=== PATIENT | female | born 1970 | race Hispanic/Latino ===

== ENCOUNTER → 2018-10-09 | Day surgery (SDC) | payer BC ==
[~2018-10-09] MED LIST: ASPIR 8181 MG PO; ATORVASTATIN CA20 MG PO; FENTANYL CITRATE/PF 100MCG/2 ML INJ ONE; GLIMEPIRIDE2 MG PO; HYDROCHLOROTHIA25 MG PO; LISINOPRIL10 MG PO; METOPROLOL TART25 MG PO; MIDAZOLAM HCL 2 MG/2 ML VIAL ONE; PROPOFOL IV EMULSION 10 MG/ML 20 ML VIAL ONE; SERTRALINE HCL50 MG PO; ZETIA10 MG PO
--- OUTSIDE RECORDS SUMMARY | 2018-10-09 06:46 | XMS REPORT ---
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 clinical pathologiccondition that includes a clinical event (vascularthrombosis, mortality, thrombocytopenia, etc.) andpersistent positivity of antiphospholipid antibodies (IgG orIgM ESTHER>40 GPL/MPL, IgG or IgM anti-B2GPI antibodies, or thepresence of a Lupus Anticoagulant). The InternationalConsensus guidelines suggest that these isotypes must bepresent on two or more occasions and at least 12 weeks apartto confirm antibody persistence. Although the IgA isotypehas been implicated in thrombotic events, these isotypeshave not yet been included into the APS criteria. YXTW-7-MZOJX I IGM (test code=GPIIGM) SMU 0.0-20.0 OIIU-6-ROHCK I IGG (test code=GPIIGG) SGU 0.0-20.0 ELWY-2-MPKTZ I IGA (test code=GPIIGA) 1.0 [place]ODROW 0.0-20.0 The Antiphospholipid Syndrome (APS) is a clinical pathologiccondition that includes a clinical event (vascularthrombosis, mortality, thrombocytopenia, etc.) andpersistent positivity of antiphospholipid antibodies (IgG orIgM ESTHER>40 GPL/MPL, IgG or IgM anti-B2GPI antibodies, or thepresence of a Lupus Anticoagulant). The InternationalConsensus guidelines suggest that these isotypes must bepresent on two or more occasions and at least 12 weeks apartto confirm antibody persistence. Although the IgA isotypehas been implicated in thrombotic events, these isotypeshave not yet been included into the APS criteria. HOMOCYSTEINE (test code=HOMOCY) 5.1 umol/L 3.2-10.7 DIAGNOSIS: CVA, RIGHT FACE NUMBNESSARTERIAL THROMBOPHILIA [id number] 12:37:00* Test Item Value Reference Range Comments PROTHROMBIN 3 UNTRANSLATED (test code=OU7RPQX) NO MUTATION DETECTED () PROTHROMBIN (FACTOR II ([id number]) MUTATION INTERPRETATION:This individual is negative (normal) for the [id number] in the Prothrombin/Factor II gene. Increased riskof thrombophilia can be caused by a variety of genetic andnon-genetic factors not screened for this assay. Laboratory testing supervised and results monitored byJuanito Yun M.D. MUTATION ANALYSIS:The [id number] mutation in the Prothrombin/FactorII gene is thesecond most common inherited risk factor for thrombosisoccuring in approximately 2% of Caucasions. Presence of themutation is associated with an elevation of prothrombinlevels to about 30% above normal in heterozygotes and to 70%above normal in homozygotes. The Prothrombin/Factor II isperformed on an automated system and integrates samplepurification, nucleic acid amplification, and detection ofthe target sequence in whole blood using real-time polymerase chain reaction (PCR) assays. Although rare. falsepositive or false negative results may occur. All resultsshould be interpreted in the context of clinical findings,relevant history, and other laboratory data. [facility] is certifiedunder the Clinical Laboratory Improvement Amendment (CLIA)as qualified to perform high complexity testing. PROTHROMBIN TIME PATIENT (test code=PTP) 13.1 SECONDS 9.3-12.9 INTERNATIONAL NORMAL RATIO (test code=INR) 1.2 0.8-1.2 TARGET INR BY INDICATION Indication INR1. Prophylaxis of venous thrombosis 2.0 - 3.0 (orthopedic surgery), Prophylaxis of venous thrombosis (other than high-risk surgery), Treatment of Deep Vein Thrombosis/Pulmonary Embolism, Prevention of systemic embolism - Tissue heart valves, Acute Myocardial Infarction (to prevent systemic embolism), Valvular heart disease, Atrial Fibrillation, Bileaflet mechanical valve in aortic position.2. Mechanical prosthetic valves (high risk), 2.5 - 3.5 Presence of Lupus Anticoagulant or Antiphospholipid Antibodies, Prevention of systemic embolism - Acute Myocardial Infarction (to prevent recurrent infarct). THROMBOPLASTIN TIME PARTIAL (test code=PTT) 41.4 Seconds 25.0-39.5 Therapeutic Range: 50.4 - 88.3 Seconds Effective 08/05/2018 PTT 1:1 MIX SECURITIES LENDING TRADER (test code=PTTMIX2) TEST NOT PERFORMED SECONDS () PTT 1:3 MIX (test code=PTTMIX3) TEST NOT PERFORMED SECONDS () PT 1:2 MIX (test code=PTMIX2) TEST NOT PERFORMED SECONDS () Mixing study not indicated due to normal PT and PTT. RVVT PATIENT (test code=RVVTPAT) 1.1 RATIO 0.0-1.2 ACTIVATED PROT C RESISTANCE (test code=APC) 2.82 RATIO 2.31-5.00 Ratios > or=to 2.31 are considered negative for the FactorV Leiden. SILICA CLOTTING TIME (test code=SILCLOT) 1.05 <1.14 PT 12.9 sec (9.6-13.0)PTT 34 sec (25-37) A Lupus Anticoagulant is NOT DETECTED. This interpretationis based on the test results.Previously reported result: 1.05 Edited by: RAHAT on 09/01/18:070357 1230: SILICA CLOTTING previously reported as: 1.05 PROTEIN S FREE (test code=PROTSFR) 101 % 55-124 Protein S deficiency may be acquired due to recentthrombosis, oral anticoagulant therapy, , oralcontraceptives or hormone replacement therapy, liverdysfunction, recent surgery, DIC, and vitamin K deficiency.Hereditary deficiency of Protein S show decreased levels butare rare. Elevated Protein S levels are not clinicallysignificant. Only decreased levels are associated with anincreased thrombotic risk. ESTHER IGG (test code=ACAG) 1.2 GPL <=15 ESTHER IGA (test code=ACAA) 0.5 APL <=12 ESTHER IGM (test code=ACAM) 3.8 MPL <=12.5 The Antiphospholipid Syndrome (APS) is a clinical pathologiccondition that includes a clinical event (vascularthrombosis, mortality, thrombocytopenia, etc.) andpersistent positivity of antiphospholipid antibodies (IgG orIgM ESTHER>40 GPL/MPL, IgG or IgM anti-B2GPI antibodies, or thepresence of a Lupus Anticoagulant). The InternationalConsensus guidelines suggest that these isotypes must bepresent on two or more occasions and at least 12 weeks apartto confirm antibody persistence. Although the IgA isotypehas been implicated in thrombotic events, these isotypeshave not yet been included into the APS criteria. WUJG-9-KRDMR I IGM (test code=GPIIGM) SMU <20 ZMTP-6-CNVSN I IGG (test code=GPIIGG) UNITS <20 BAEA-0-EHIFY I IGA (test code=GPIIGA) 0.0-20.0 HOMOCYSTEINE (test code=HOMOCY) 5.1 umol/L 3.2-10.7 DIAGNOSIS: CVA, RIGHT FACE NUMBNESSC REACTIVE [id number] 15:11:00* Test Item Value Reference Range Comments C REACTIVE PROTEIN (test code=CRP) < 2.9 MG/L 0.0-2.9 ANTINUCLEAR ANTIBODIES [id number] 15:11:00* Test Item Value Reference Range Comments VINAYAK SCREEN (test code=ANASCR) Negative () Negative <1:80 Borderline 1:80 Positive >1:80Performed At: [facility] [address] [id number] Ki Momin MD Ph:[phone] ARTERIAL THROMBOPHILIA [id number] 14:14:00* Test Item Value Reference Range Comments PROTHROMBIN 3 UNTRANSLATED (test code=PZ0DMAS) NO MUTATION DETECTED () PROTHROMBIN (FACTOR II ([id number]) MUTATION INTERPRETATION:This individual is negative (normal) for the [id number] in the Prothrombin/Factor II gene. Increased riskof thrombophilia can be caused by a variety of genetic andnon-genetic factors not screened for this assay. Laboratory testing supervised and results monitored byJuanito Yun M.D. MUTATION ANALYSIS:The [id number] mutation in the Prothrombin/FactorII gene is thesecond most common inherited risk factor for thrombosisoccuring in approximately 2% of Caucasions. Presence of themutation is associated with an elevation of prothrombinlevels to about 30% above normal in heterozygotes and to 70%above normal in homozygotes. The Prothrombin/Factor II isperformed on an automated system and integrates samplepurification, nucleic acid amplification, and detection ofthe target sequence in whole blood using real-time polymerase chain reaction (PCR) assays. Although rare. falsepositive or false negative results may occur. All resultsshould be interpreted in the context of clinical findings,relevant history, and other laboratory data. [facility] is certifiedunder the Clinical Laboratory Improvement Amendment (CLIA)as qualified to perform high complexity testing. PROTHROMBIN TIME PATIENT (test code=PTP) 13.1 SECONDS 9.3-12.9 INTERNATIONAL NORMAL RATIO (test code=INR) 1.2 0.8-1.2 TARGET INR BY INDICATION Indication INR1. Prophylaxis of venous thrombosis 2.0 - 3.0 (orthopedic surgery), Prophylaxis of venous thrombosis (other than high-risk surgery), Treatment of Deep Vein Thrombosis/Pulmonary Embolism, Prevention of systemic embolism - Tissue heart valves, Acute Myocardial Infarction (to prevent systemic embolism), Valvular heart disease, Atrial Fibrillation, Bileaflet mechanical valve in aortic position.2. Mechanical prosthetic valves (high risk), 2.5 - 3.5 Presence of Lupus Anticoagulant or Antiphospholipid Antibodies, Prevention of systemic embolism - Acute Myocardial Infarction (to prevent recurrent infarct). THROMBOPLASTIN TIME PARTIAL (test code=PTT) 41.4 Seconds 25.0-39.5 Therapeutic Range: 50.4 - 88.3 Seconds Effective 08/05/2018 PTT 1:1 MIX SECURITIES LENDING TRADER (test code=PTTMIX2) TEST NOT PERFORMED SECONDS () PTT 1:3 MIX (test code=PTTMIX3) TEST NOT PERFORMED SECONDS () PT 1:2 MIX (test code=PTMIX2) TEST NOT PERFORMED SECONDS () Mixing study not indicated due to normal PT and PTT. RVVT PATIENT (test code=RVVTPAT) 1.1 RATIO 0.0-1.2 ACTIVATED PROT C RESISTANCE (test code=APC) 2.82 RATIO 2.31-5.00 Ratios > or=to 2.31 are considered negative for the FactorV Leiden. SILICA CLOTTING TIME (test code=SILCLOT) 1.05 <1.14 PT 12.9 sec (9.6-13.0)PTT 34 sec (25-37) A Lupus Anticoagulant is NOT DETECTED. This interpretationis based on the test results.Previously reported result: 1.05 Edited by: RAHAT on 09/01/18:343640 1230: SILICA CLOTTING previously reported as: 1.05 PROTEIN S FREE (test code=PROTSFR) 101 % 55-124 Protein S deficiency may be acquired due to recentthrombosis, oral anticoagulant therapy, , oralcontraceptives or hormone replacement therapy, liverdysfunction, recent surgery, DIC, and vitamin K deficiency.Hereditary deficiency of Protein S show decreased levels butare rare. Elevated Protein S levels are not clinicallysignificant. Only decreased levels are associated with anincreased thrombotic risk. ESTHER IGG (test code=ACAG) ESTHER IGA (test code=ACAA) ESTHER IGM (test code=ACAM) IEVO-3-DGOFX I IGM (test code=GPIIGM) SMU <20 ENYK-3-DILHO I IGG (test code=GPIIGG) UNITS <20 REMN-5-WITIT I IGA (test code=GPIIGA) 0.0-20.0 HOMOCYSTEINE (test code=HOMOCY) 5.1 umol/L 3.2-10.7 ARTERIAL THROMBOPHILIA [id number] 16:08:00* Test Item Value Reference Range Comments PROTHROMBIN 3 UNTRANSLATED (test code=OV0THUX) NO MUTATION DETECTED () PROTHROMBIN (FACTOR II ([id number]) MUTATION INTERPRETATION:This individual is negative (normal) for the [id number] in the Prothrombin/Factor II gene. Increased riskof thrombophilia can be caused by a variety of genetic andnon-genetic factors not screened for this assay. Laboratory testing supervised and results monitored byJuanito Yun M.D. MUTATION ANALYSIS:The [id number] mutation in the Prothrombin/FactorII gene is thesecond most common inherited risk factor for thrombosisoccuring in approximately 2% of Caucasions. Presence of themutation is associated with an elevation of prothrombinlevels to about 30% above normal in heterozygotes and to 70%above normal in homozygotes. The Prothrombin/Factor II isperformed on an automated system and integrates samplepurification, nucleic acid amplification, and detection ofthe target sequence in whole blood using real-time polymerase chain reaction (PCR) assays. Although rare. falsepositive or false negative results may occur. All resultsshould be interpreted in the context of clinical findings,relevant history, and other laboratory data. [facility] is certifiedunder the Clinical Laboratory Improvement Amendment (CLIA)as qualified to perform high complexity testing. PROTHROMBIN TIME PATIENT (test code=PTP) 13.1 SECONDS 9.3-12.9 INTERNATIONAL NORMAL RATIO (test code=INR) 1.2 0.8-1.2 TARGET INR BY INDICATION Indication INR1. Prophylaxis of venous thrombosis 2.0 - 3.0 (orthopedic surgery), Prophylaxis of venous thrombosis (other than high-risk surgery), Treatment of Deep Vein Thrombosis/Pulmonary Embolism, Prevention of systemic embolism - Tissue heart valves, Acute Myocardial Infarction (to prevent systemic embolism), Valvular heart disease, Atrial Fibrillation, Bileaflet mechanical valve in aortic position.2. Mechanical prosthetic valves (high risk), 2.5 - 3.5 Presence of Lupus Anticoagulant or Antiphospholipid Antibodies, Prevention of systemic embolism - Acute Myocardial Infarction (to prevent recurrent infarct). THROMBOPLASTIN TIME PARTIAL (test code=PTT) 41.4 Seconds 25.0-39.5 Therapeutic Range: 50.4 - 88.3 Seconds Effective 08/05/2018 PTT 1:1 MIX SECURITIES LENDING TRADER (test code=PTTMIX2) SECONDS () PTT 1:3 MIX (test code=PTTMIX3) SECONDS () PT 1:2 MIX (test code=PTMIX2) SECONDS () Mixing study not indicated due to normal PT and PTT. RVVT PATIENT (test code=RVVTPAT) 1.1 RATIO 0.0-1.2 ACTIVATED PROT C RESISTANCE (test code=APC) 2.82 RATIO 2.31-5.00 Ratios > or=to 2.31 are considered negative for the FactorV Leiden. SILICA CLOTTING TIME (test code=SILCLOT) 1.05 <1.14 PT 12.9 sec (9.6-13.0)PTT 34 sec (25-37) A Lupus Anticoagulant is NOT DETECTED. This interpretationis based on the test results.Previously reported result: 1.05 Edited by: RAHAT on 09/01/18:836373 1230: SILICA CLOTTING previously reported as: 1.05 PROTEIN S FREE (test code=PROTSFR) 101 % 55-124 Protein S deficiency may be acquired due to recentthrombosis, oral anticoagulant therapy, , oralcontraceptives or hormone replacement therapy, liverdysfunction, recent surgery, DIC, and vitamin K deficiency.Hereditary deficiency of Protein S show decreased levels butare rare. Elevated Protein S levels are not clinicallysignificant. Only decreased levels are associated with anincreased thrombotic risk. ESTHER IGG (test code=ACAG) ESTHER IGA (test code=ACAA) ESTHER IGM (test code=ACAM) PXQG-9-ZMHKI I IGM (test code=GPIIGM) SMU <20 JRDG-8-HMJQU I IGG (test code=GPIIGG) UNITS <20 GUFM-8-MXQVH I IGA (test code=GPIIGA) 0.0-20.0 HOMOCYSTEINE (test code=HOMOCY) 5.1 umol/L 3.2-10.7 ARTERIAL THROMBOPHILIA [id number] 12:41:00* Test Item Value Reference Range Comments PROTHROMBIN 3 UNTRANSLATED (test code=HV2ZGJI) PROTHROMBIN TIME PATIENT (test code=PTP) 13.1 SECONDS 9.3-12.9 INTERNATIONAL NORMAL RATIO (test code=INR) 1.2 0.8-1.2 TARGET INR BY INDICATION Indication INR1. Prophylaxis of venous thrombosis 2.0 - 3.0 (orthopedic surgery), Prophylaxis of venous thrombosis (other than high-risk surgery), Treatment of Deep Vein Thrombosis/Pulmonary Embolism, Prevention of systemic embolism - Tissue heart valves, Acute Myocardial Infarction (to prevent systemic embolism), Valvular heart disease, Atrial Fibrillation, Bileaflet mechanical valve in aortic position.2. Mechanical prosthetic valves (high risk), 2.5 - 3.5 Presence of Lupus Anticoagulant or Antiphospholipid Antibodies, Prevention of systemic embolism - Acute Myocardial Infarction (to prevent recurrent infarct). THROMBOPLASTIN TIME PARTIAL (test code=PTT) 41.4 Seconds 25.0-39.5 Therapeutic Range: 50.4 - 88.3 Seconds Effective 08/05/2018 PTT 1:1 MIX SECURITIES LENDING TRADER (test code=PTTMIX2) SECS PT 1:2 MIX (test code=PTMIX2) SECS RVVT PATIENT (test code=RVVTPAT) 1.1 RATIO 0.0-1.2 ACTIVATED PROT C RESISTANCE (test code=APC) 2.82 RATIO 2.31-5.00 Ratios > or=to 2.31 are considered negative for the FactorV Leiden. SILICA CLOTTING TIME (test code=SILCLOT) 1.05 <1.14 PT 12.9 sec (9.6-13.0)PTT 34 sec (25-37) A Lupus Anticoagulant is NOT DETECTED. This interpretationis based on the test results.Previously reported result: 1.05 Edited by: RAHAT on 09/01/18:053766 1230: SILICA CLOTTING previously reported as: 1.05 PROTEIN S FREE (test code=PROTSFR) 101 % 55-124 Protein S deficiency may be acquired due to recentthrombosis, oral anticoagulant therapy, , oralcontraceptives or hormone replacement therapy, liverdysfunction, recent surgery, DIC, and vitamin K deficiency.Hereditary deficiency of Protein S show decreased levels butare rare. Elevated Protein S levels are not clinicallysignificant. Only decreased levels are associated with anincreased thrombotic risk. ESTHER IGG (test code=ACAG) ESTHER IGA (test code=ACAA) ESTHER IGM (test code=ACAM) YCVL-6-SEBVM I IGM (test code=GPIIGM) SMU <20 NZJD-0-UDXLK I IGG (test code=GPIIGG) UNITS <20 MAES-9-WLWWX I IGA (test code=GPIIGA) 0.0-20.0 HOMOCYSTEINE (test code=HOMOCY) 5.1 umol/L 3.2-10.7 ARTERIAL THROMBOPHILIA [id number] 12:40:00* Test Item Value Reference Range Comments PROTHROMBIN 3 UNTRANSLATED (test code=YD5PLXI) PROTHROMBIN TIME PATIENT (test code=PTP) 13.1 SECONDS 9.3-12.9 INTERNATIONAL NORMAL RATIO (test code=INR) 1.2 0.8-1.2 TARGET INR BY INDICATION Indication INR1. Prophylaxis of venous thrombosis 2.0 - 3.0 (orthopedic surgery), Prophylaxis of venous thrombosis (other than high-risk surgery), Treatment of Deep Vein Thrombosis/Pulmonary Embolism, Prevention of systemic embolism - Tissue heart valves, Acute Myocardial Infarction (to prevent systemic embolism), Valvular heart disease, Atrial Fibrillation, Bileaflet mechanical valve in aortic position.2. Mechanical prosthetic valves (high risk), 2.5 - 3.5 Presence of Lupus Anticoagulant or Antiphospholipid Antibodies, Prevention of systemic embolism - Acute Myocardial Infarction (to prevent recurrent infarct). THROMBOPLASTIN TIME PARTIAL (test code=PTT) 41.4 Seconds 25.0-39.5 Therapeutic Range: 50.4 - 88.3 Seconds Effective 08/05/2018 PTT 1:1 MIX SECURITIES LENDING TRADER (test code=PTTMIX2) SECS PT 1:2 MIX (test code=PTMIX2) SECS RVVT PATIENT (test code=RVVTPAT) 1.1 RATIO 0.0-1.2 ACTIVATED PROT C RESISTANCE (test code=APC) SILICA CLOTTING TIME (test code=SILCLOT) 1.05 <1.14 PT 12.9 sec (9.6-13.0)PTT 34 sec (25-37) A Lupus Anticoagulant is NOT DETECTED. This interpretationis based on the test results.Previously reported result: 1.05 Edited by: RAHAT on 09/01/18:968122 1230: SILICA CLOTTING previously reported as: 1.05 PROTEIN S FREE (test code=PROTSFR) 101 % 55-124 Protein S deficiency may be acquired due to recentthrombosis, oral anticoagulant therapy, , oralcontraceptives or hormone replacement therapy, liverdysfunction, recent surgery, DIC, and vitamin K deficiency.Hereditary deficiency of Protein S show decreased levels butare rare. Elevated Protein S levels are not clinicallysignificant. Only decreased levels are associated with anincreased thrombotic risk. ESTHER IGG (test code=ACAG) ESTHER IGA (test code=ACAA) ESTHER IGM (test code=ACAM) JEUE-9-WHGYK I IGM (test code=GPIIGM) SMU <20 IFIK-3-TWKYC I IGG (test code=GPIIGG) UNITS <20 RHYU-9-LPHZM I IGA (test code=GPIIGA) 0.0-20.0 HOMOCYSTEINE (test code=HOMOCY) 5.1 umol/L 3.2-10.7 ARTERIAL THROMBOPHILIA [id number] 12:30:00* Test Item Value Reference Range Comments PROTHROMBIN 3 UNTRANSLATED (test code=RX3IGXN) PROTHROMBIN TIME PATIENT (test code=PTP) 13.1 SECONDS 9.3-12.9 INTERNATIONAL NORMAL RATIO (test code=INR) 1.2 0.8-1.2 TARGET INR BY INDICATION Indication INR1. Prophylaxis of venous thrombosis 2.0 - 3.0 (orthopedic surgery), Prophylaxis of venous thrombosis (other than high-risk surgery), Treatment of Deep Vein Thrombosis/Pulmonary Embolism, Prevention of systemic embolism - Tissue heart valves, Acute Myocardial Infarction (to prevent systemic embolism), Valvular heart disease, Atrial Fibrillation, Bileaflet mechanical valve in aortic position.2. Mechanical prosthetic valves (high risk), 2.5 - 3.5 Presence of Lupus Anticoagulant or Antiphospholipid Antibodies, Prevention of systemic embolism - Acute Myocardial Infarction (to prevent recurrent infarct). THROMBOPLASTIN TIME PARTIAL (test code=PTT) 41.4 Seconds 25.0-39.5 Therapeutic Range: 50.4 - 88.3 Seconds Effective 08/05/2018 PTT 1:1 MIX SECURITIES LENDING TRADER (test code=PTTMIX2) SECS PT 1:2 MIX (test code=PTMIX2) SECS RVVT PATIENT (test code=RVVTPAT) 1.1 RATIO 0.0-1.2 ACTIVATED PROT C RESISTANCE (test code=APC) SILICA CLOTTING TIME (test code=SILCLOT) 1.05 <1.14 PROTEIN S FREE (test code=PROTSFR) % ESTHER IGG (test code=ACAG) ESTHER IGA (test code=ACAA) ESTHER IGM (test code=ACAM) JNCH-2-VNQTP I IGM (test code=GPIIGM) SMU <20 YGQA-9-KMELF I IGG (test code=GPIIGG) UNITS <20 BRTO-8-TPVSJ I IGA (test code=GPIIGA) 0.0-20.0 HOMOCYSTEINE (test code=HOMOCY) 5.1 umol/L 3.2-10.7 ARTERIAL THROMBOPHILIA [id number] 12:30:00* Test Item Value Reference Range Comments PROTHROMBIN 3 UNTRANSLATED (test code=CC7VCPI) PROTHROMBIN TIME PATIENT (test code=PTP) 13.1 SECONDS 9.3-12.9 INTERNATIONAL NORMAL RATIO (test code=INR) 1.2 0.8-1.2 TARGET INR BY INDICATION Indication INR1. Prophylaxis of venous thrombosis 2.0 - 3.0 (orthopedic surgery), Prophylaxis of venous thrombosis (other than high-risk surgery), Treatment of Deep Vein Thrombosis/Pulmonary Embolism, Prevention of systemic embolism - Tissue heart valves, Acute Myocardial Infarction (to prevent systemic embolism), Valvular heart disease, Atrial Fibrillation, Bileaflet mechanical valve in aortic position.2. Mechanical prosthetic valves (high risk), 2.5 - 3.5 Presence of Lupus Anticoagulant or Antiphospholipid Antibodies, Prevention of systemic embolism - Acute Myocardial Infarction (to prevent recurrent infarct). THROMBOPLASTIN TIME PARTIAL (test code=PTT) 41.4 Seconds 25.0-39.5 Therapeutic Range: 50.4 - 88.3 Seconds Effective 08/05/2018 PTT 1:1 MIX SECURITIES LENDING TRADER (test code=PTTMIX2) SECS PT 1:2 MIX (test code=PTMIX2) SECS RVVT PATIENT (test code=RVVTPAT) 1.1 RATIO 0.0-1.2 ACTIVATED PROT C RESISTANCE (test code=APC) SILICA CLOTTING TIME (test code=SILCLOT) 1.05 <1.14 PT 12.9 sec (9.6-13.0)PTT 34 sec (25-37) A Lupus Anticoagulant is NOT DETECTED. This interpretationis based on the test results.Previously reported result: 1.05 Edited by: RAHAT on 09/01/18:686756 1230: SILICA CLOTTING previously reported as: 1.05 PROTEIN S FREE (test code=PROTSFR) % ESTHER IGG (test code=ACAG) ESTHER IGA (test code=ACAA) ESTHER IGM (test code=ACAM) FLWY-0-VJMHJ I IGM (test code=GPIIGM) SMU <20 UBWZ-4-XFPLN I IGG (test code=GPIIGG) UNITS <20 AQJE-9-LJHNQ I IGA (test code=GPIIGA) 0.0-20.0 HOMOCYSTEINE (test code=HOMOCY) 5.1 umol/L 3.2-10.7 [id number] 06:11:00* Test Item Value Reference Range Comments GLUBED (test code=GLUBED) 117 MG/DL 70-110 Performed by certified sludge filtration operator at [facility] SED RATE [id number] 15:25:00* Test Item Value Reference Range Comments SED RATE WESTERGREN (test code=SEDW) 13 mm/hr 0-20 C REACTIVE [id number] 15:17:00* Test Item Value Reference Range Comments C REACTIVE PROTEIN (test code=CRP) < 2.9 MG/L 0.0-2.9 ANTINUCLEAR ANTIBODIES [id number] 15:17:00* Test Item Value Reference Range Comments VINAYAK SCREEN (test code=ANASCR) URINALYSIS [id number] 14:44:00* Test Item Value Reference Range Comments UA COLOR (test code=COLU) STRAW YEL/STRAW UA APPEARANCE (test code=APPU) CLEAR CLEAR UA GLUCOSE DIPSTICK (test code=DGLUU) 1+ NEGATIVE UA BILIRUBIN DIPSTICK (test code=BILU) NEGATIVE NEGATIVE UA KETONE DIPSTICK (test code=KETU) NEGATIVE NEGATIVE UA SPECIFIC GRAVITY (test code=SGU) 1.010 1.005-1.030 UA BLOOD DIPSTICK (test code=LUIS) NEGATIVE NEGATIVE UA PH DIPSTICK (test code=MARQUIS) 7.0 5.0-7.0 UA PROTEIN DIPSTICK (test code=PROU) NEGATIVE NEGATIVE UA UROBILINIOGEN DIPSTICK (test code=URO) 0.2 mg/dL 0.2-1.0 UA NITRITE DIPSTICK (test code=TERESA) NEGATIVE NEGATIVE UA LEUKOCYTE ESTERASE DIPSTICK (test code=LEUU) 1+ NEGATIVE UA WBC (test code=WBCU) 0-3 WBC/HPF 0-3 UA RBC (test code=RBCU) NONE SEEN RBC/HPF 0-3 UA BACTERIA (test code=BACU) TRACE /HPF NONE SEEN UA SQUAMOUS CELLS (test code=SQU) 0-5 /HPF NONE SEEN ARTERIAL THROMBOPHILIA [id number] 14:40:00* Test Item Value Reference Range Comments PROTHROMBIN 3 UNTRANSLATED (test code=HQ9VCDT) PROTHROMBIN TIME PATIENT (test code=PTP) 13.1 SECONDS 9.3-12.9 INTERNATIONAL NORMAL RATIO (test code=INR) 1.2 0.8-1.2 TARGET INR BY INDICATION Indication INR1. Prophylaxis of venous thrombosis 2.0 - 3.0 (orthopedic surgery), Prophylaxis of venous thrombosis (other than high-risk surgery), Treatment of Deep Vein Thrombosis/Pulmonary Embolism, Prevention of systemic embolism - Tissue heart valves, Acute Myocardial Infarction (to prevent systemic embolism), Valvular heart disease, Atrial Fibrillation, Bileaflet mechanical valve in aortic position.2. Mechanical prosthetic valves (high risk), 2.5 - 3.5 Presence of Lupus Anticoagulant or Antiphospholipid Antibodies, Prevention of systemic embolism - Acute Myocardial Infarction (to prevent recurrent infarct). THROMBOPLASTIN TIME PARTIAL (test code=PTT) 41.4 Seconds 25.0-39.5 Therapeutic Range: 50.4 - 88.3 Seconds Effective 08/05/2018 PTT 1:1 MIX SECURITIES LENDING TRADER (test code=PTTMIX2) SECS PT 1:2 MIX (test code=PTMIX2) SECS RVVT PATIENT (test code=RVVTPAT) ACTIVATED PROT C RESISTANCE (test code=APC) SILICA CLOTTING TIME (test code=SILCLOT) PROTEIN S FREE (test code=PROTSFR) % ESTHER IGG (test code=ACAG) ESTHRE IGA (test code=ACAA) ESTHER IGM (test code=ACAM) WFCI-1-ASEAV I IGM (test code=GPIIGM) SMU <20 GQNB-2-JDJUJ I IGG (test code=GPIIGG) UNITS <20 IFDZ-8-CALEE I IGA (test code=GPIIGA) 0.0-20.0 HOMOCYSTEINE (test code=HOMOCY) 5.1 umol/L 3.2-10.7 DRUGS OF ABUSE SCREEN [id number] 14:31:00* Test Item Value Reference Range Comments URN COCAINE (test code=COCAURN) NEGATIVE NEGATIVE URN CANNABINOIDS (test code=CANNABURN) NEGATIVE NEGATIVE URN AMPHETAMINE (test code=AMPHETURN) NEGATIVE NEGATIVE URN BARBITURATE (test code=BARBITURN) NEGATIVE NEGATIVE URN BENZODIAZEPINE (test code=BENZOURN) NEGATIVE NEGATIVE Cut-off value:200 ng/mL URN OPIATES (test code=OPIATURN) NEGATIVE NEGATIVE Cut-off value:2000 ng/mL URN PHENCYCLIDINE (PCP) (test code=PHENCURN) NEGATIVE NEGATIVE Cutoffs:Barbiturates 200 ng/mLBenzodiazepines 200 ng/mLTHC Cannabinoids 50 ng/mLOpiates(Morphine) 2000 ng/mLAmphetamine 1000 ng/mLCocaine 300 ng/mLPCP phencyclidine 25 ng/mL Unconfirmed screening results shouldnot be used for non-medical purposes. ARTERIAL THROMBOPHILIA [id number] 14:29:00* Test Item Value Reference Range Comments PROTHROMBIN 3 UNTRANSLATED (test code=[id number]) PROTHROMBIN TIME PATIENT (test code=PTP) 13.1 SECONDS 9.3-12.9 INTERNATIONAL NORMAL RATIO (test code=INR) 1.2 0.8-1.2 TARGET INR BY INDICATION Indication INR1. Prophylaxis of venous thrombosis 2.0 - 3.0 (orthopedic surgery), Prophylaxis of venous thrombosis (other than high-risk surgery), Treatment of Deep Vein Thrombosis/Pulmonary Embolism, Prevention of systemic embolism - Tissue heart valves, Acute Myocardial Infarction (to prevent systemic embolism), Valvular heart disease, Atrial Fibrillation, Bileaflet mechanical valve in aortic position.2. Mechanical prosthetic valves (high risk), 2.5 - 3.5 Presence of Lupus Anticoagulant or Antiphospholipid Antibodies, Prevention of systemic embolism - Acute Myocardial Infarction (to prevent recurrent infarct). THROMBOPLASTIN TIME PARTIAL (test code=PTT) 41.4 Seconds 25.0-39.5 Therapeutic Range: 50.4 - 88.3 Seconds Effective 08/05/2018 PTT 1:1 MIX SECURITIES LENDING TRADER (test code=PTTMIX2) SECS PT 1:2 MIX (test code=PTMIX2) SECS RVVT PATIENT (test code=RVVTPAT) ACTIVATED PROT C RESISTANCE (test code=APC) SILICA CLOTTING TIME (test code=SILCLOT) PROTEIN S FREE (test code=PROTSFR) % ESTHER IGG (test code=ACAG) ESTHER IGA (test code=ACAA) ESTHER IGM (test code=ACAM) TLJI-6-LQIVD I IGM (test code=GPIIGM) SMU <20 DWZO-3-KMQZI I IGG (test code=GPIIGG) UNITS <20 QYXL-2-YFDIP I IGA (test code=GPIIGA) 0.0-20.0 HOMOCYSTEINE (test code=HOMOCY) umol/L 3.2-10.7 ARTERIAL THROMBOPHILIA [id number] 14:24:00* Test Item Value Reference Range Comments PROTHROMBIN 3 UNTRANSLATED (test code=NI0DSAX) PROTHROMBIN TIME PATIENT (test code=PTP) 13.1 SECONDS 9.3-12.9 INTERNATIONAL NORMAL RATIO (test code=INR) 1.2 0.8-1.2 TARGET INR BY INDICATION Indication INR1. Prophylaxis of venous thrombosis 2.0 - 3.0 (orthopedic surgery), Prophylaxis of venous thrombosis (other than high-risk surgery), Treatment of Deep Vein Thrombosis/Pulmonary Embolism, Prevention of systemic embolism - Tissue heart valves, Acute Myocardial Infarction (to prevent systemic embolism), Valvular heart disease, Atrial Fibrillation, Bileaflet mechanical valve in aortic position.2. Mechanical prosthetic valves (high risk), 2.5 - 3.5 Presence of Lupus Anticoagulant or Antiphospholipid Antibodies, Prevention of systemic embolism - Acute Myocardial Infarction (to prevent recurrent infarct). THROMBOPLASTIN TIME PARTIAL (test code=PTT) 41.4 Seconds 25.0-39.5 Therapeutic Range: 50.4 - 88.3 Seconds Effective 08/05/2018 PTT 1:1 MIX SECURITIES LENDING TRADER (test code=PTTMIX2) SECS PTT 1:3 MIX (test code=PTTMIX3) SECS PT 1:2 MIX (test code=PTMIX2) SECS RVVT PATIENT (test code=RVVTPAT) ACTIVATED PROT C RESISTANCE (test code=APC) SILICA CLOTTING TIME (test code=SILCLOT) PROTEIN S FREE (test code=PROTSFR) % ESTHER IGG (test code=ACAG) ESTHER IGA (test code=ACAA) ESTHER IGM (test code=ACAM) PYWF-0-BGRLN I IGM (test code=GPIIGM) SMU <20 QIZI-7-UNXMQ I IGG (test code=GPIIGG) UNITS <20 OPMS-0-AIZIW I IGA (test code=GPIIGA) 0.0-20.0 HOMOCYSTEINE (test code=HOMOCY) umol/L 3.2-10.7 - MRA HEAD W/O [id number] 12:18:00 FAX: Ross Villa MD [phone] [place]: St: ADM FAX: Delmi Santiago [phone] FAX: Rashel Pike MD [phone] Name: CALLIE KUMARI [facility] [place] : 1970 Age/S: 48/F [address] [place] [address] Unit #: [id number] Loc: [place] [address] Phys: Delmi Tobar MD Acct: [id number] Dis Date: Status: ADM IN PHONE #: [phone] Exam Date: 08/30/2018 1101 FAX #: [phone] Reason: right facial weakness, prior stroke EXAMS: CPT CODE: [id number] MR A HEAD W/O CONTRAST 01166 INDICATION: Ri ght facial weakness. COMPARISON: Brain CT 08/29/2018 and brain MR TECHNIQUE: -Brain: Axial T1, axial D of October, axia l T2 FLAIR, axial T2, sagittal T1, coronal T2 FLAIR, axial T2 gradient, po stcontrast axial, and coronal T1 MR sequences of the brain. -Brain MRA: Three-dimensional time of flight brain MR angiography of intracranial vessels is performed, and maximum intensity projection reformatted images are presented in multiple three-dimensional rotational projections. -Neck MRA: Magnetic resonance angiography of the neck was performed after administration of gadolinium contrast material with standard technique. M IP and volume rendering post-processed images were obtained. 3D reconstruc cynthia images were performed. IV contrast: 13 mL MultiHance. FINDINGS: SCALP AND CALVARIUM: No focal enhancing abnormality. VENTRICLES AND SULCI: Normal size and configuration f or the patient's age. EXTRA-AXIAL SPACES: No abnormal signal or mass effect. No abnormal enhancement. BRAIN PARENCHYMA: There is no abnormal restricted diffusion, or abnormal enhancement. Chron ic 3 mm lacunar infarction in the left thalamus (acute on brain CT perform ed on 07/19/2018). Otherwise, there is no abnormal signal in the brain par enchyma. There is no mass effect or midline shift. There is no magnetic s usceptibility to suggest intraparenchymal hemorrhage. SKULL BASE: The skull base, craniocervical junction, and brainstem are unremark able. CHIASM/SELLA: The optic chiasm and sella are unremarkable. PARANASAL SINUSES: Mild mucosal thickening and enhancement. No fl uid PAGE 1 Signed Report (CONTINUE D) FAX: Ross Villa MD [phone] [place]: [facility]: [facility] FAX: Delmi Santiago [phone] FAX: Rashel Pike MD Name: CALLIE KUMARI [facility] : 1970 Age/S: 48/F [address] [place] [address] Unit #: [id number] Loc: [address] [address] [facility] s: Delmi Tobar MD Acct: [id number] Dis Date: Status: ADM IN PHONE #: [phone] Exam Date: 08/30/2018 1101 FAX #: [phone] Reason: right facial weakness, prior stroke EXAMS: CPT CODE: [id number] MRA HEAD W/O CONTRAST 64747 <Continued> level in the paranasal sinuses. BRAIN MRA: ANTERIOR CIRCULATION: Right: Internal carotid artery: Normal caliber. Symmetric, 2 mm paraophthalmic outpouching (ser ies 4, image 66; series 400, image 12) Anterior cerebral artery: N ormal caliber. Middle cerebral artery: Normal caliber. Left: Internal carotid artery: Normal caliber. Symmetric, 2 mm paraophthalmic outpouching (series 4, image 66; series 400, image 12). Anterior cerebral artery: Normal caliber. Middle cerebral artery: Normal caliber. Communicating arteries: A nterior: Patent. Posterior: Patent on the right and not well-visualized on the left. POSTERIOR CIRCULATION: Right vertebral ar betahny: Normal caliber. Left vertebral artery: Normal caliber. Basilar artery: Normal caliber. Right posterior cerebral artery: Normal caliber. Left posterior cerebral artery: Normal michael iber. There is no additional aneurysm, signs of vascular malformat ion, or PAGE 2 Signed Report (CONT INUED) FAX: Ross Villa MD [phone] [place]: [facility] St: ADM FA X: Delmi Santiago [phone] FAX: Atul PaigeRashel Albert Justyn Bee [phone] Name: CALLIE KUMARI [facility] : 1970 Age/S: 48/F [address] [place] [address] Blvd Unit #: [id number] Loc: [address] [address] Phys: Delmi Tobar MD Acct: [id number] Dis Date: Status: ADM IN PHONE #: [phone] Exam Date: 08/30/2018 1101 FAX #: [phone] Reason: right facial weakness, prior stroke EXAMS: CPT CODE: [id number] MRA HEAD W/O CONTRAST 60480 <Continued> significant atherosclerotic disease. Neck MRA: Aortic arch: Normal anatomy. RIGHT-SIDED EXTRACRANIAL SYSTEM: Common carotid artery: No hemodynamically significant stenosis. Internal carotid artery: No hemodynamically significant stenosis. Right vertebral artery: Normal caliber. LEFT-SIDED EXTR ACRANIAL SYSTEM: Common carotid artery: No hemodynamically signifi cant stenosis. Internal carotid artery: No hemodynamically signifi cant stenosis. Left vertebral artery: Normal caliber. Comment: Any carotid artery stenosis measurements provided in the above report utilized a normal caliber distal carotid artery as the denominator according to NASCET criteria/recommendations. IMPRESSION : BRAIN: No acute infarction or acute intracranial abnormality . Chronic 3 mm lacunar infarction in the left thalamus. BRAIN MR A: No high-grade stenosis or acute occlusion. Symmetric 2 mm out pouching at the paraophthalmic segment right and left internal carotid a rteries. These may represent artifacts from the ophthalmic artery, or s mall aneurysm. NECK MRA: Normal caliber internal carotid arterie s and vertebral arteries. SL: [id number] PAGE 3 Signed Report (CONTINUED) FAX: Ross Mathur MD [phone] [place]: St: ADM FAX: Delmi Fontanez [phone] FAX: Rashel Pike MD [phone] ------ Name: CALLIE KUMARI [facility] : [birth year] Age/S: 48/F [address] [place] [address] Unit #: [id number] Loc: [address] [address] Phys: Christa Tobar sa, MD Acct: [id number] Dis Date: Status: ADM IN PHONE #: Exam Date: 08/30/2018 1101 FAX #: [phone] Reason: right facial weakness, prior stroke EXAMS: CPT CODE: [id number] MRA HEAD W/O CONTR AST 34325 <Continued> at 1218 Reported and signed by: James Augustin M.D. CC: Ross Villa MD; Delmi Henderson MD; Rashel Paige MD Technologist: RT Eulogio(MR)(CT) Trnscrd Date/Time/By: 08/30/2018 (6091) : By: [email or web address] Orig Print D/T: S: 08/30/2018 (9634) PAGE 4 Signed Report - MRA NECK [id number] 12:18:00 FAX: Ross Villa MD [phone] [place]: St: ADM FAX: Delmi Santiago [phone] FAX: Rashel Pike MD [phone] Name: CALLIE KUMARI [facility] [place] : 1970 Age/S: 48/F [address] [place] [address] Bl Unit #: [id number] Loc: [address] [address] Phys: Delmi Tobar MD Acct: [id number] Dis Date: Status: ADM IN PHONE #: [phone] Exam Date: 08/30/2018 1101 FAX #: [phone] Reason: right facial weakness, prior stroke EXAMS: CPT CODE: [id number] MR A NECK W/CONT 99191 INDICATION: Ri ght facial weakness. COMPARISON: Brain CT 08/29/2018 and brain MR TECHNIQUE: -Brain: Axial T1, axial D of Yaneth, axia l T2 FLAIR, axial T2, sagittal T1, coronal T2 FLAIR, axial T2 gradient, po stcontrast axial, and coronal T1 MR sequences of the brain. -Brain MRA: Three-dimensional time of flight brain MR angiography of intracranial vessels is performed, and maximum intensity projection reformatted images are presented in multiple three-dimensional rotational projections. -Neck MRA: Magnetic resonance angiography of the neck was performed after administration of gadolinium contrast material with standard technique. M IP and volume rendering post-processed images were obtained. 3D reconstruc cynthia images were performed. IV contrast: 13 mL MultiHance. FINDINGS: SCALP AND CALVARIUM: No focal enhancing abnormality. VENTRICLES AND SULCI: Normal size and configuration f or the patient's age. EXTRA-AXIAL SPACES: No abnormal signal or mass effect. No abnormal enhancement. BRAIN PARENCHYMA: There is no abnormal restricted diffusion, or abnormal enhancement. Chron ic 3 mm lacunar infarction in the left thalamus (acute on brain CT perform ed on 07/19/2018). Otherwise, there is no abnormal signal in the brain par enchyma. There is no mass effect or midline shift. There is no magnetic s usceptibility to suggest intraparenchymal hemorrhage. SKULL BASE: The skull base, craniocervical junction, and brainstem are unremark able. CHIASM/SELLA: The optic chiasm and sella are unremarkable. PARANASAL SINUSES: Mild mucosal thickening and enhancement. No fl uid PAGE 1 Signed Report (CONTINUE D) FAX: Ross Villa MD [phone] [place]: St: ADM FAX: Delmi Santiago [phone] FAX: Rashel Pike MD Name: CALLIE KUMARI [facility] : 1970 Age/S: 48/F [address] [place] [address] Unit #: [id number] Loc: [address] [place] [address] Ph s: Delmi Tobar MD Acct: [id number] Dis Date: Status: ADM IN PHONE #: [phone] Exam Date: 08/30/2018 1101 FAX #: [phone] Reason: right facial weakness, prior stroke EXAMS: CPT CODE: [id number] MRA NECK W/CONT 05634 <Continued> level in the paranasal sinuses. BRAIN MRA: ANTERIOR CIRCULATION: Right: Internal carotid artery: Normal caliber. Symmetric, 2 mm paraophthalmic outpouching (ser ies 4, image 66; series 400, image 12) Anterior cerebral artery: N ormal caliber. Middle cerebral artery: Normal caliber. Left: Internal carotid artery: Normal caliber. Symmetric, 2 mm paraophthalmic outpouching (series 4, image 66; series 400, image 12). Anterior cerebral artery: Normal caliber. Middle cerebral artery: Normal caliber. Communicating arteries: A nterior: Patent. Posterior: Patent on the right and not well-visualized on the left. POSTERIOR CIRCULATION: Right vertebral ar bethany: Normal caliber. Left vertebral artery: Normal caliber. Basilar artery: Normal caliber. Right posterior cerebral artery: Normal caliber. Left posterior cerebral artery: Normal michael iber. There is no additional aneurysm, signs of vascular malformat ion, or PAGE 2 Signed Report (CONT INUED) FAX: Ross Villa MD [phone] [place]: St: ADM FA X: Delmi Santiago [phone] FAX: Atul PaigeRashelfabian Bee [phone] Name: CALLIE KUMARI [facility] : 1970 Age/S: 48/F [address] [place], [place] [address]vd Unit #: [id number] Loc: [address] [place] [address] Phys: Delmi Tobar MD Acct: [id number] Dis Date: Status: ADM IN PHONE #: [phone] Exam Date: 08/30/2018 1101 FAX #: [phone] Reason: right facial weakness, prior stroke EXAMS: CPT CODE: [id number] MRA NECK W/CONT 88121 <Continued> significant atherosclerotic disease. Neck MRA: Aortic arch: Normal anatomy. RIGHT-SIDED EXTRACRANIAL SYSTEM: Common carotid artery: No hemodynamically significant stenosis. Internal carotid artery: No hemodynamically significant stenosis. Right vertebral artery: Normal caliber. LEFT-SIDED EXTR ACRANIAL SYSTEM: Common carotid artery: No hemodynamically signifi cant stenosis. Internal carotid artery: No hemodynamically signifi cant stenosis. Left vertebral artery: Normal caliber. Comment: Any carotid artery stenosis measurements provided in the above report utilized a normal caliber distal carotid artery as the denominator according to NASCET criteria/recommendations. IMPRESSION : BRAIN: No acute infarction or acute intracranial abnormality . Chronic 3 mm lacunar infarction in the left thalamus. BRAIN MR A: No high-grade stenosis or acute occlusion. Symmetric 2 mm out pouching at the paraophthalmic segment right and left internal carotid a rteries. These may represent artifacts from the ophthalmic artery, or s mall aneurysm. NECK MRA: Normal caliber internal carotid arterie s and vertebral arteries. SL: [id number] PAGE 3 Signed Report (CONTINUED) FAX: Ross Mathur MD [phone] [place]: St: ADM FAX: Delmi Fontanez [phone] FAX: Rashel Pike MD [phone] ------ Name: CALLIE KUMARI [facility] : [birth year] Age/S: 48/F [address] [place] [address] Unit #: [id number] Loc: [address] [place] [address] Phys: Christa Tobar sa, MD Acct: [id number] Dis Date: Status: ADM IN PHONE #: Exam Date: 08/30/2018 1101 FAX #: [phone] Reason: right facial weakness, prior stroke EXAMS: CPT CODE: [id number] MRA NECK W/CONT 94500 <Continued> at 1218 Reported and signed by: James Augustin M.D. CC: Ross Villa MD; Delmi Henderson MD; Rashel Paige MD Technologist: RT Eulogio(MR)(CT) Trnscrd Date/Time/By: 08/30/2018 (1218) : By: [email or web address] Orig Print D/T: S: 08/30/2018 (4815) PAGE 4 Signed Report - MRI BRAIN WO/W [id number] 12:18:00 FAX: Ross Villa MD [phone] [place]: St: ADM FAX: Delmi Santiago [phone] FAX: Rashel Pike MD [phone] Name: CALLIE KUMARI [facility] [place] : 1970 Age/S: 48/F [address] [place] [address] Unit #: [id number] Loc: [address] [address] Phys: Delmi Tobar MD Acct: [id number] Dis Date: Status: ADM IN PHONE #: [phone] Exam Date: 08/30/2018 110 FAX #: [phone] Reason: right facial weakness, prior stroke EXAMS: CPT CODE: [id number] MR I BRAIN WO/W CONT 01865 INDICATION: Ri ght facial weakness. COMPARISON: Brain CT 08/29/2018 and brain MR TECHNIQUE: -Brain: Axial T1, axial D of October, axia l T2 FLAIR, axial T2, sagittal T1, coronal T2 FLAIR, axial T2 gradient, po stcontrast axial, and coronal T1 MR sequences of the brain. -Brain MRA: Three-dimensional time of flight brain MR angiography of intracranial vessels is performed, and maximum intensity projection reformatted images are presented in multiple three-dimensional rotational projections. -Neck MRA: Magnetic resonance angiography of the neck was performed after administration of gadolinium contrast material with standard technique. M IP and volume rendering post-processed images were obtained. 3D reconstruc cynthia images were performed. IV contrast: 13 mL MultiHance. FINDINGS: SCALP AND CALVARIUM: No focal enhancing abnormality. VENTRICLES AND SULCI: Normal size and configuration f or the patient's age. EXTRA-AXIAL SPACES: No abnormal signal or mass effect. No abnormal enhancement. BRAIN PARENCHYMA: There is no abnormal restricted diffusion, or abnormal enhancement. Chron ic 3 mm lacunar infarction in the left thalamus (acute on brain CT perform ed on 07/19/2018). Otherwise, there is no abnormal signal in the brain par enchyma. There is no mass effect or midline shift. There is no magnetic s usceptibility to suggest intraparenchymal hemorrhage. SKULL BASE: The skull base, craniocervical junction, and brainstem are unremark able. CHIASM/SELLA: The optic chiasm and sella are unremarkable. PARANASAL SINUSES: Mild mucosal thickening and enhancement. No fl uid PAGE 1 Signed Report (CONTINUE D) FAX: Ross Villa MD [phone] [place]: St: [facility] FAX: Delmi Santiago [phone] FAX: Rashel Pike MD Name: CALLIE KUMARI [facility] : 1970 Age/S: 48/F [address] [place] [address] Unit #: [id number] Loc: [address] [address] [facility] s: Delmi Tobar MD Acct: [id number] Dis Date: Status: ADM IN PHONE #: [phone] Exam Date: 08/30/2018 1101 FAX #: [phone] Reason: right facial weakness, prior stroke EXAMS: CPT CODE: [id number] MRI BRAIN WO/W CONT 62866 <Continued> level in the paranasal sinuses. BRAIN MRA: ANTERIOR CIRCULATION: Right: Internal carotid artery: Normal caliber. Symmetric, 2 mm paraophthalmic outpouching (ser ies 4, image 66; series 400, image 12) Anterior cerebral artery: N ormal caliber. Middle cerebral artery: Normal caliber. Left: Internal carotid artery: Normal caliber. Symmetric, 2 mm paraophthalmic outpouching (series 4, image 66; series 400, image 12). Anterior cerebral artery: Normal caliber. Middle cerebral artery: Normal caliber. Communicating arteries: A nterior: Patent. Posterior: Patent on the right and not well-visualized on the left. POSTERIOR CIRCULATION: Right vertebral ar bethany: Normal caliber. Left vertebral artery: Normal caliber. Basilar artery: Normal caliber. Right posterior cerebral artery: Normal caliber. Left posterior cerebral artery: Normal michael iber. There is no additional aneurysm, signs of vascular malformat ion, or PAGE 2 Signed Report (CONT INUED) FAX: Ross Villa MD [phone] [place]: St: ADM FA X: Delmi Santiago [phone] FAX: Rashel Pike [phone] Name: CALLIE KUMARI [facility] : 1970 Age/S: 48/F [address] [place] [address] Unit #: [id number] Loc: [address] [address] Phys: Delmi Tobar MD Acct: [id number] Dis Date: Status: ADM IN PHONE #: [phone] Exam Date: 08/30/2018 1101 FAX #: [phone] Reason: right facial weakness, prior stroke EXAMS: CPT CODE: [id number] MRI BRAIN WO/W CONT 75769 <Continued> significant atherosclerotic disease. Neck MRA: Aortic arch: Normal anatomy. RIGHT-SIDED EXTRACRANIAL SYSTEM: Common carotid artery: No hemodynamically significant stenosis. Internal carotid artery: No hemodynamically significant stenosis. Right vertebral artery: Normal caliber. LEFT-SIDED EXTR ACRANIAL SYSTEM: Common carotid artery: No hemodynamically signifi cant stenosis. Internal carotid artery: No hemodynamically signifi cant stenosis. Left vertebral artery: Normal caliber. Comment: Any carotid artery stenosis measurements provided in the above report utilized a normal caliber distal carotid artery as the denominator according to NASCET criteria/recommendations. IMPRESSION : BRAIN: No acute infarction or acute intracranial abnormality . Chronic 3 mm lacunar infarction in the left thalamus. BRAIN MR A: No high-grade stenosis or acute occlusion. Symmetric 2 mm out pouching at the paraophthalmic segment right and left internal carotid a rteries. These may represent artifacts from the ophthalmic artery, or s mall aneurysm. NECK MRA: Normal caliber internal carotid arterie s and vertebral arteries. SL: [id number] PAGE 3 Signed Report (CONTINUED) FAX: Ross Mathur MD [phone] [place]: St: ADM FAX: Delmi Fontanez [phone] FAX: Rashel Pike MD [phone] ------ Name: CALLIE KUMARI [facility] : [birth year] Age/S: 48/F [address] [place] [address] Unit #: [id number] Loc: [address] [address] Phys: Christa Tobar sa, MD Acct: [id number] Dis Date: Status: ADM IN PHONE #: Exam Date: 08/30/2018 1101 FAX #: [phone] Reason: right facial weakness, prior stroke EXAMS: CPT CODE: [id number] MRI BRAIN WO/W CONT 32119 <Continued> at 1218 Reported and signed by: James Augustin M.D. CC: Ross Villa MD; Delmi Henderson MD; Rashel Paige MD Technologist: Gracie Madison RT(MR)(CT) Trnscrd Date/Time/By: 08/30/2018 (6326) : By: [email or web address] Orig Print D/T: S: 08/30/2018 (4621) PAGE 4 Signed Report HGBA1C%2018-08-30 09:35:00* Test Item Value Reference Range Comments HGBA1C% (test code=HGBA1C%) 8.4 %A1C 4.8-6.0 COMPREHENSIVE METABOLIC [id number] 08:17:00* Test Item Value Reference Range Comments SODIUM (test code=NA) 137 mEq/L 134-147 POTASSIUM (test code=K) 4.1 mEq/L 3.4-5.0 CHLORIDE (test code=CL) 106 mEq/L 100-108 CARBON DIOXIDE (test code=CO2) 23 mEq/L 21-33 ANION GAP (test code=GAP) 12 0-20 GLUCOSE (test code=GLU) 147 mg/dL 70-110 BLOOD UREA NITROGEN (test code=BUN) 10 mg/dL 7-18 GLOMERULAR FILTRATION RATE (test code=GFR) 132.2 95-105 Units of measure=ml/min/1.73 m2 CREATININE (test code=CREAT) 0.5 mg/dL 0.6-1.3 TOTAL PROTEIN (test code=PROT) 6.7 g/dL 6.4-8.2 ALBUMIN (test code=ALB) 3.30 g/dL 3.4-5.0 CALCIUM (test code=CA) 8.0 mg/dL 8.0-10.5 BILIRUBIN TOTAL (test code=BILT) 0.40 mg/dL 0.0-1.0 SGOT/AST (test code=AST) 29 IUnit/L 15-37 SGPT/ALT (test code=ALT) 41 IUnit/L 15-65 ALKALINE PHOSPHATASE TOTAL (test code=ALKP) 73 IUnit/L 20-125 COMMENTS: Fasting in AMLIPID PROFILE (CORONARY RISK)2018-08-30 08:17:00* Test Item Value Reference Range Comments TRIGLYCERIDES (test code=TRIG) 139 mg/dL 40-150 CHOLESTEROL (test code=CHOL) 171 mg/dL <200 CHOLESTEROL/HDL RATIO (test code=CHOLHDL) 4.89 RATIO 3.27-4.44 RISK ASSOCIATED WITH CHOL/HDL RATIOS: RISK MALE FEMALE1/2 AVERAGE 3.43 3.27AVERAGE 4.97 4.442X AVERAGE 9.55 7.053X AVERAGE 23.39 11.04 NOTE THAT THE REFERENCE VALUE IS RELATEDTO RISK LEVELS RECOMMENDED BY THE NATL.HEART, LUNG, AND BLOOD INST. HDL CHOLESTEROL (test code=HDL) 35.0 mg/dL 39-96 LIPOPROTEIN LDL (test code=LDL) 119 mg/dL 0-100 <100 [id number] NEAR OPTIMAL/ABOVE [id number] HIGH>RC=023 VERY HIGH*Guidelines provided by the National Cholesterol EducationProgram Adult Treatment Panel III COMMENTS: [place] [facility] [place] [id number] 07:34:00* Test Item Value Reference Range Comments WHITE BLOOD CELL (test code=WBC) 8.60 x10 3/uL 4.5-11.0 RED BLOOD CELL (test code=RBC) 4.69 x10 6/uL 3.54-5.02 HEMOGLOBIN (test code=HGB) 12.0 g/dL 11.0-15.0 HEMATOCRIT (test code=HCT) 39.1 % 33.0-45.0 MEAN CELL VOLUME (test code=MCV) 83.4 fL 81.0-99.0 MEAN CELL HGB (test code=MCH) 25.6 pg 27.0-33.0 MEAN CELL HGB CONCETRATION (test code=MCHC) 30.7 g/dL 33.0-37.0 RED CELL DISTRIBUTION WIDTH CV (test code=RDW) 18.0 % 11.5-14.5 RED CELL DISTRIBUTION WIDTH SD (test code=RDW-SD) 54.7 fL 37.0-54.0 PLATELET COUNT (test code=PLT) 575 x10 3/uL 150-400 MEAN PLATELET VOLUME (test code=MPV) 10.4 fL 7.0-9.0 NEUTROPHIL % (test code=NT%) 50.6 % 56.0-77.0 IMMATURE GRANULOCYTE % (test code=IG%) 1.0 % 0.0-2.0 LYMPHOCYTE % (test code=LY%) 32.6 % 14.0-32.0 MONOCYTE % (test code=MO%) 9.7 % 4.8-9.0 EOSINOPHIL % (test code=EO%) 5.8 % 0.3-3.7 BASOPHIL % (test code=BA%) 0.3 % 0.0-2.0 NUCLEATED RBC % (test code=NRBC%) 0.0 % 0-0 NEUTROPHIL # (test code=NT#) 4.35 x10 3/uL 2.0-7.6 IMMATURE GRANULOCYTE # (test code=IG#) 0.09 x10 3/uL 0.00-0.03 LYMPHOCYTE # (test code=LY#) 2.80 x10 3/uL 1.0-3.8 MONOCYTE # (test code=MO#) 0.83 x10 3/uL 0.1-0.8 EOSINOPHIL # (test code=EO#) 0.50 x10 3/uL 0.0-0.2 BASOPHIL # (test code=BA#) 0.03 x10 3/uL 0.0-0.2 NUCLEATED RBC # (test code=NRBC#) 0.00 x10 3/uL 0.0-0.1 MANUAL DIFF REQUIRED (test code=MDIFF) NO - CT HEAD/BRAIN W/O [id number] 14:46:00 Name: CALLIE KUMARI [facility] : 1970 Age/S: 48 / F [address] [place] [address] Unit #: [id number] Loc: [place] [address] Phys: Gordon Vee DO Acct: [id number] Dis Date: Status: REG ER PHONE #: [phone] Exam Date: 08/29/2018 1429 FAX #: [phone] Reason: right facial droop/numbness EXAMS: CPT CODE: [id number] CT HEAD/BRAIN W/O CONT 18088 PROCEDURE: CT HEAD WITHOUT CONTRAST INDICATION: right facial droop/numbness COMPARISON: CT July 18, 2018, MRI July 19, 2018 TECHNIQUE: Noncontrast helical imaging performed skull base to the vertex. Multiplanar reformations are obtained. CT imaging performed at this location utilizes radiation dose optimization techniques which include one or more of the following: - Automated exposure control -Adjustment of the mA and/or kV according to patient size -Use of iterative reconstruction technique CT Radiation Dose DLP 419.70 mGy-cm FINDINGS: BRAIN PARENCHYMA: Subcentimeter circumscribed lacunar infarct left thalamic nucleus co rresponding to findings on prior MRI. The cerebral cortical architecture is maintained. No intra-axial or extra-axial hemorrhage, mass lesion or m ass effect. The midline structures and posterior fossa contents are unrem arkable. VENTRICLES: The ventricular system is normal. The basi lar cisterns are normal. ORBITS, MASTOIDS AND PARANASAL SIN USES: Patchy mucosal thickening paranasal sinuses. The visualized orbits are unremarkable. The mastoid air cells are pneumatized. SK ULL: The calvarium is intact. IMPRESSION: 1. No hemorr mynor, mass lesion or evidence of acute vascular territory infarct. 2. Small chronic lacunar infarct left thalamus. If there is continued clinical concern, further imaging options would include MRI. A verbal report was called to Gordon Vee DO on 08/29/2018 2:43 PM. SL: [id number] PAGE 1 Signed Report (CONTINUED) Name: CALLIE KUMARI [facility] : 1970 Age/S: 48 / F [address] [place] [address] Unit #: [id number] Loc: [place] [address] Phys: NandaGordon Estephania Acct: [id number] Dis Date: Status: REG ER PHONE #: [phone] Exam Date: 2018 1429 FAX #: [phone] Reason: right facial derek op/numbness EXAMS: CPT CODE: [id number] CT HEAD/BRAIN W/O CONT 704 50 <Continued> at 1446 Reported and signed by: Kirk Reese M.D. CC: Gordon Vee DO; Rashel Paige MD Technologist:Sahil Gomes, RT(R) CTDI: DLP: Trnscb Date/Time: 08/29/2018 (1446) Fili Orig Print D/T: S: 08/29/2018 (2195) PAGE 2 Signed Report PROTHROMBIN [id number] 14:43:00* Test Item Value Reference Range Comments PROTHROMBIN TIME PATIENT (test code=PTP) 13.1 SECONDS 9.3-12.9 INTERNATIONAL NORMAL RATIO (test code=INR) 1.2 0.8-1.2 TARGET INR BY INDICATION Indication INR1. Prophylaxis of venous thrombosis 2.0 - 3.0 (orthopedic surgery), Prophylaxis of venous thrombosis (other than high-risk surgery), Treatment of Deep Vein Thrombosis/Pulmonary Embolism, Prevention of systemic embolism - Tissue heart valves, Acute Myocardial Infarction (to prevent systemic embolism), Valvular heart disease, Atrial Fibrillation, Bileaflet mechanical valve in aortic position.2. Mechanical prosthetic valves (high risk), 2.5 - 3.5 Presence of Lupus Anticoagulant or Antiphospholipid Antibodies, Prevention of systemic embolism - Acute Myocardial Infarction (to prevent recurrent infarct). THROMBOPLASTIN TIME [id number] 14:43:00* Test Item Value Reference Range Comments THROMBOPLASTIN TIME PARTIAL (test code=PTT) 41.8 Seconds 25.0-39.5 Therapeutic Range: 50.4 - 88.3 Seconds Effective 08/05/2018 - XR CHEST 1 [id number] 14:32:00 FAX: Gordon Weller DO [place]: St: PRE FAX: Rashel Pike MD [phone] Name: CALLIE KUMARI [facility] : 1970 Age/S: 48/F [address] [place], [place] [address]vd Unit #: [id number] Loc: [address] [address] Phys: Gordon Vee DO Acct: [id number] Dis Date: Status: PRE ER PHONE #: [phone] Exam Date: 08/29/2018 1418 FAX #: [phone] Reason: stroke EXAMS: CPT CODE: [id number] XR CHEST 1 V 61524 EXAM: Single view AP chest. EXAM DATE: 08/29/2018 1408 hours CLINICAL HISTORY: Stroke COMPARISON: July 18, 2018 at 1416 hours Cardiomediastinal silhouette is within normal limits. The lungs appear free of acute disease. Visualized osseous structures are unremarkable. IMPRESSION: No evidence of acute cardiopulmonary disease. at 1432 Reported and signed by: Idalia Ansari M.D. CC: Gordon eVe DO; Rashel Paige MD Technologist: RT Segun(R) [facility] Date/Time/By: 08/29/2018 (4785) : By: Sierra Orig Print D/T: S: (7011) PAGE 1 Signed Rep ort CBC W/O [id number] 14:16:00* Test Item Value Reference Range Comments WHITE BLOOD CELL (test code=WBC) 11.17 x10 3/uL 4.5-11.0 RED BLOOD CELL (test code=RBC) 4.91 x10 6/uL 3.54-5.02 HEMOGLOBIN (test code=HGB) 12.5 g/dL 11.0-15.0 HEMATOCRIT (test code=HCT) 40.3 % 33.0-45.0 MEAN CELL VOLUME (test code=MCV) 82.1 fL 81.0-99.0 MEAN CELL HGB (test code=MCH) 25.5 pg 27.0-33.0 MEAN CELL HGB CONCETRATION (test code=MCHC) 31.0 g/dL 33.0-37.0 RED CELL DISTRIBUTION WIDTH CV (test code=RDW) 17.8 % 11.5-14.5 RED CELL DISTRIBUTION WIDTH SD (test code=RDW-SD) 52.9 fL 37.0-54.0 PLATELET COUNT (test code=PLT) 669 x10 3/uL 150-400 MEAN PLATELET VOLUME (test code=MPV) 10.3 fL 7.0-9.0 TROPONIN-I [id number] 14:14:00* Test Item Value Reference Range Comments TROPONIN-I RAPID (test code=TROPIRAP) 0.00 ng/mL 0.00-0.08 Performed by certified sludge filtration operator at [facility] Negative: <=0.08 Positive: >=0.09An elevated troponin value alone is not sufficient todiagnose a myocardial infarction. Rather, the patient sclinical presentation (history, physical exam) and ECGshould be used in conjunction with troponin in thediagnostic evaluation of suspected myocardial infarction. Aserial sampling protocol is recommended to facilitate the identification of temporal changes in troponin levels characteristic of GA. CHEMISTRY 8 [id number] 14:07:00* Test Item Value Reference Range Comments ISTAT-SODIUM (test code=NAP) MMOL/L 134-147 ISTAT-POTASSIUM (test code=KP) MMOL/L 3.4-5.0 ISTAT-CHLORIDE (test code=CLP) MMOL/L 100-108 ISTAT CARBON DIOXIDE (test code=ISTAT-CO2) mmol/L 21-33 ISTAT CALCIUM IONIZED (test code=ISTAT-RANDALL) MG/DL 1.12-1.32 ISTAT-GLUCOSE (test code=GLUP) MG/DL 70-110 ISTAT-BUN (test code=BUNP) MG/DL 7-18 BEDSIDE CREATININE (test code=CREATBED) MG/DL 0.6-1.3 GLOMERULAR FILTRATION RATE POC (test code=GFRBED) 182 ML/MIN CHEMISTRY 8 [id number] 14:07:00* Test Item Value Reference Range Comments ISTAT-SODIUM (test code=NAP) 136 MMOL/L 134-147 ISTAT-POTASSIUM (test code=KP) 3.6 MMOL/L 3.4-5.0 ISTAT-CHLORIDE (test code=CLP) 98 MMOL/L 100-108 Performed by certified sludge filtration operator at [facility] ISTAT CARBON DIOXIDE (test code=ISTAT-CO2) 27.0 mmol/L 21-33 ISTAT CALCIUM IONIZED (test code=ISTAT-RANDALL) 1.15 MG/DL 1.12-1.32 ISTAT-GLUCOSE (test code=GLUP) 167 MG/DL 70-110 ISTAT-BUN (test code=BUNP) 10 MG/DL 7-18 BEDSIDE CREATININE (test code=CREATBED) 0.4 MG/DL 0.6-1.3 GLOMERULAR FILTRATION RATE POC (test code=GFRBED) 182 ML/MIN [id number] 17:24:00* Test Item Value Reference Range Comments GLUBED (test code=GLUBED) 190 mg/dL 74-106 Performed by certified sludge filtration operator at [facility] [id number] 13:42:00* Test Item Value Reference Range Comments GLUBED (test code=GLUBED) 230 mg/dL 74-106 Performed by certified sludge filtration operator at [facility] [id number] 06:59:00* Test Item Value Reference Range Comments GLUBED (test code=GLUBED) 190 mg/dL 74-106 [facility] certified sludge [facility]ified [facility]~ [id number] 21:55:00* Test Item Value Reference Range Comments GLUBED (test code=GLUBED) 203 mg/dL 74-106 Performed by certified sludge filtration operator at [facility] - MRI BRAIN W/O [id number] 20:32:00 FAX: Mireille Isaac MD [place]: B St: ADM FAX: Rashel Pike MD [phone] Name: CALLIE KUMARI [facility] : 1970 Age/S: 48/F [address] [facility] Unit #: [id number] Loc: [place] [address] Phys: Mireille Osorio MD Acct: [id number] Dis Date: Status: ADM IN PHONE #: [phone] Exam Date: 07/19/20181952 FAX #: [phone] Reason: r/o stroke EXAMS: CPT CODE: [id number] MRI BRAIN W/O CONTRAST 24501 HISTORY: stroke TECHNIQUE: Sagittal T1, axial FLAIR, axial T2, axial gradient T2, axial T1, coronal T2, and DWI/ADC sequences of the brain were acquired. COMPARISON: Head CT 09/17/18 FINDINGS: Acute left thalamic lacunar infarct. No intracranial hemorrhage. No intracranial mass or mass effect. No hydrocephalus. Pituitary gland and corpus callosum are normal in appearance. No extra- axial fluid collections. Normal vascular flow-voids are identified. Vis ualized orbital contents are unremarkable. Paranasal sinuses are clear. Calvarial and skull base marrow signal is preserved. IMPRESS ION: Acute left thalamic lacunar infarct. No acute hemorrhage . CRITICAL VALUES: Discussed with Dr. Osorio at 2032 hours. FOR INTERNAL CODING PURPOSES ONLY RESULT CODE: CVR at 2031 Reported and signed by: Lucille Cedillo D.O. CC: Mireille Osorio MD; Rashel Paige MD Technologist: Rhianna Rojo RT(R)(MR) Trn scrd Date/Time/By: 07/19/2018 (2031) : By: MauricioLDP1 Orig Print D/T: S : 07/19/2018 (2034) PAGE 1 Signed Report [id number] 17:03:00* Test Item Value Reference Range Comments GLUBED (test code=GLUBED) 146 mg/dL 74-106 Performed by certified sludge filtration operator at [facility] [id number] 13:45:00* Test Item Value Reference Range Comments GLUBED (test code=GLUBED) 227 mg/dL 74-106 Performed by certified sludge filtration operator at [facility] THYROID STIMULATING [id number] 13:36:00* Test Item Value Reference Range Comments THYROID STIMULATING HORMONE (test code=TSH) 0.500 uIU/mL 0.36-3.74 TSH REFERENCE RANGES: EUTHYROID: 0.35 - 4.3 mIU/mL HYPO : > 5.5 mIU/mL HYPER : < 0.35 mIU/mL SPECIMEN COMMENTS: add if possibleCOMMENTS TO ACCOUNTING PROFESSIONAL: add if possibleCBC W/AUTO [id number] 06:56:00* Test Item Value Reference Range Comments WHITE BLOOD CELL (test code=WBC) 12.3 K/mm3 4.5-12.5 RED BLOOD CELL (test code=RBC) 4.74 mill/mm3 3.7-5.2 HEMOGLOBIN (test code=HGB) 11.1 gram/dL 11.5-15.5 HEMATOCRIT (test code=HCT) 38.7 % 36.0-46.0 MEAN CELL VOLUME (test code=MCV) 81.6 fL 80-98 MEAN CELL HGB (test code=MCH) 23.4 picogram 27.0-33.0 MEAN CELL HGB CONCETRATION (test code=MCHC) 28.7 gram/dL 33.0-36.0 RED CELL DISTRIBUTION WIDTH (test code=RDW) 16.3 % 11.6-16.2 RED CELL DISTRIBUTION WIDTH SD (test code=RDW-SD) 48.1 fL 37.0-51.0 PLATELET COUNT (test code=PLT) 584 K/mm3 150-450 RESULT VERIFIED BY REPEAT ANALYSIS MEAN PLATELET VOLUME (test code=MPV) 10.7 fL 6.7-11.0 NEUTROPHIL % (test code=NT%) 61.6 % 39.0-69.0 IMMATURE GRANULOCYTE % (test code=IG%) 0.8 % 0.0-5.0 LYMPHOCYTE % (test code=LY%) 22.3 % 25.0-55.0 MONOCYTE % (test code=MO%) 9.2 % 0.0-10.0 EOSINOPHIL % (test code=EO%) 5.7 % 0.0-5.0 BASOPHIL % (test code=BA%) 0.4 % 0.0-1.0 NUCLEATED RBC % (test code=NRBC%) 0.0 % 0-0 NEUTROPHIL # (test code=NT#) 7.54 K/mm3 1.8-7.7 IMMATURE GRANULOCYTE # (test code=IG#) 0.10 x10 3/uL 0-0.03 LYMPHOCYTE # (test code=LY#) 2.73 K/mm3 1.0-5.0 MONOCYTE # (test code=MO#) 1.13 K/mm3 0-0.8 EOSINOPHIL # (test code=EO#) 0.70 K/mm3 0.0-0.5 BASOPHIL # (test code=BA#) 0.05 K/mm3 0.0-0.2 NUCLEATED RBC # (test code=NRBC#) 0.00 K/mm3 0.0-0.1 MANUAL DIFF REQUIRED (test code=MDIFF) NO, ONLY SCAN NEEDED DIFFERENTIAL [id number] 06:56:00* Test Item Value Reference Range Comments STAIN ACCEPTABILITY (test code=STN ACCEPTABLE) STAIN ACCEPTABLE PLATELET ESTIMATE (test code=PLTEST) INCREASED PLATELET MORPHOLOGY (test code=PLTMORPH) NORMAL [id number] 05:58:00* Test Item Value Reference Range Comments GLUBED (test code=GLUBED) 168 mg/dL 74-106 Performed by certified sludge filtration operator at [facility] FE W/TOTAL IRON BINDING CAP.2018-07-19 05:51:00* Test Item Value Reference Range Comments SERUM IRON (test code=IRON) 28 ug/dL 50-175 TOTAL IRON BINDING CAPACITY (test code=TIBC) 410 mcg/dL 250-450 IRON SATURATION (test code=FESAT) 6.83 % 13-45 BASIC METABOLIC [id number] 05:44:00* Test Item Value Reference Range Comments SODIUM (test code=NA) 135 mmol/L 136-145 POTASSIUM (test code=K) 3.9 mmol/L 3.5-5.1 CHLORIDE (test code=CL) 101.0 mmol/L 98-107 CARBON DIOXIDE (test code=CO2) 26.0 mmol/L 21-32 ANION GAP (test code=GAP) 11.9 10-20 GLUCOSE (test code=GLU) 165 mg/dL 74-106 BLOOD UREA NITROGEN (test code=BUN) 8 mg/dL 7-18 GLOMERULAR FILTRATION RATE (test code=GFR) > 60 mL/min >=60 Estimated GFR by using Modified MDRD formula.Chronic kidney disease is defined as either kidney damageor GFR <60 mL/min/1.73 m2 for >3 months. CREATININE (test code=CREAT) 0.50 mg/dL 0.55-1.02 Note change in reference range due to change in reagent. BUN/CREATININE RATIO (test code=BUN/CREA) 16.0 10-20 CALCIUM (test code=CA) 8.3 mg/dL 8.5-10.1 LIPID PROFILE (CORONARY RISK)2018-07-19 05:44:00* Test Item Value Reference Range Comments TRIGLYCERIDES (test code=TRIG) 517 mg/dL 20-150 CHOLESTEROL (test code=CHOL) 174 mg/dL 0-200 CHOLESTEROL/HDL RATIO (test code=CHOLHDL) 6.0 RATIO 0-4.9 RISK ASSOCIATED WITH CHOL/HDL RATIOS: Risk Male Female1/2 AVERAGE 3.43 3.27AVERAGE 4.97 4.442X AVERAGE 9.55 7.053X AVERAGE 23.39 11.04 REFERENCE VALUE IS RELATED TO RISK LEVELS ASRECOMMENDED BY THE SUSANA. HEART, LUNG, AND BLOOD INST. HDL CHOLESTEROL (test code=HDL) 29 mg/dL 40-60 LIPOPROTEIN LDL (test code=LDL) 91 mg/dL 100-129 Reference Interval: mg/dL mmol/L Optimal <100 <2.6Near/above optimal 100-129 2.6- 3.3Borderline High 130-159 3.4-4.1High 160-189 4.1-4.9Very High >=190 >=4.9=========This LDL result is a direct measurement.========= CBC W/AUTO [id number] 05:36:00* Test Item Value Reference Range Comments WHITE BLOOD CELL (test code=WBC) 12.3 K/mm3 4.5-12.5 RED BLOOD CELL (test code=RBC) 4.74 mill/mm3 3.7-5.2 HEMOGLOBIN (test code=HGB) 11.1 gram/dL 11.5-15.5 HEMATOCRIT (test code=HCT) 38.7 % 36.0-46.0 MEAN CELL VOLUME (test code=MCV) 81.6 fL 80-98 MEAN CELL HGB (test code=MCH) 23.4 picogram 27.0-33.0 MEAN CELL HGB CONCETRATION (test code=MCHC) 28.7 gram/dL 33.0-36.0 RED CELL DISTRIBUTION WIDTH (test code=RDW) 16.3 % 11.6-16.2 RED CELL DISTRIBUTION WIDTH SD (test code=RDW-SD) 48.1 fL 37.0-51.0 PLATELET COUNT (test code=PLT) 584 K/mm3 150-450 RESULT VERIFIED BY REPEAT ANALYSIS MEAN PLATELET VOLUME (test code=MPV) 10.7 fL 6.7-11.0 NEUTROPHIL % (test code=NT%) 61.6 % 39.0-69.0 IMMATURE GRANULOCYTE % (test code=IG%) 0.8 % 0.0-5.0 LYMPHOCYTE % (test code=LY%) 22.3 % 25.0-55.0 MONOCYTE % (test code=MO%) 9.2 % 0.0-10.0 EOSINOPHIL % (test code=EO%) 5.7 % 0.0-5.0 BASOPHIL % (test code=BA%) 0.4 % 0.0-1.0 NUCLEATED RBC % (test code=NRBC%) 0.0 % 0-0 NEUTROPHIL # (test code=NT#) 7.54 K/mm3 1.8-7.7 IMMATURE GRANULOCYTE # (test code=IG#) 0.10 x10 3/uL 0-0.03 LYMPHOCYTE # (test code=LY#) 2.73 K/mm3 1.0-5.0 MONOCYTE # (test code=MO#) 1.13 K/mm3 0-0.8 EOSINOPHIL # (test code=EO#) 0.70 K/mm3 0.0-0.5 BASOPHIL # (test code=BA#) 0.05 K/mm3 0.0-0.2 NUCLEATED RBC # (test code=NRBC#) 0.00 K/mm3 0.0-0.1 MANUAL DIFF REQUIRED (test code=MDIFF) NO, ONLY SCAN NEEDED DIFFERENTIAL [id number] 05:36:00* Test Item Value Reference Range Comments STAIN ACCEPTABILITY (test code=STN ACCEPTABLE) CABOT RINGS (test code=CAB) MORPHOLOGY COMMENT (test code=MOC) PLATELET ESTIMATE (test code=PLTEST) PLATELET MORPHOLOGY (test code=PLTMORPH) CBC W/AUTO [id number] 05:36:00* Test Item Value Reference Range Comments WHITE BLOOD CELL (test code=WBC) 12.3 K/mm3 4.5-12.5 RED BLOOD CELL (test code=RBC) 4.74 mill/mm3 3.7-5.2 HEMOGLOBIN (test code=HGB) 11.1 gram/dL 11.5-15.5 HEMATOCRIT (test code=HCT) 38.7 % 36.0-46.0 MEAN CELL VOLUME (test code=MCV) 81.6 fL 80-98 MEAN CELL HGB (test code=MCH) 23.4 picogram 27.0-33.0 MEAN CELL HGB CONCETRATION (test code=MCHC) 28.7 gram/dL 33.0-36.0 RED CELL DISTRIBUTION WIDTH (test code=RDW) 16.3 % 11.6-16.2 RED CELL DISTRIBUTION WIDTH SD (test code=RDW-SD) 48.1 fL 37.0-51.0 PLATELET COUNT (test code=PLT) 584 K/mm3 150-450 RESULT VERIFIED BY REPEAT ANALYSIS MEAN PLATELET VOLUME (test code=MPV) 10.7 fL 6.7-11.0 NEUTROPHIL % (test code=NT%) 61.6 % 39.0-69.0 IMMATURE GRANULOCYTE % (test code=IG%) 0.8 % 0.0-5.0 LYMPHOCYTE % (test code=LY%) 22.3 % 25.0-55.0 MONOCYTE % (test code=MO%) 9.2 % 0.0-10.0 EOSINOPHIL % (test code=EO%) 5.7 % 0.0-5.0 BASOPHIL % (test code=BA%) 0.4 % 0.0-1.0 NUCLEATED RBC % (test code=NRBC%) 0.0 % 0-0 NEUTROPHIL # (test code=NT#) 7.54 K/mm3 1.8-7.7 IMMATURE GRANULOCYTE # (test code=IG#) 0.10 x10 3/uL 0-0.03 LYMPHOCYTE # (test code=LY#) 2.73 K/mm3 1.0-5.0 MONOCYTE # (test code=MO#) 1.13 K/mm3 0-0.8 EOSINOPHIL # (test code=EO#) 0.70 K/mm3 0.0-0.5 BASOPHIL # (test code=BA#) 0.05 K/mm3 0.0-0.2 NUCLEATED RBC # (test code=NRBC#) 0.00 K/mm3 0.0-0.1 MANUAL DIFF REQUIRED (test code=MDIFF) NO, ONLY SCAN NEEDED DIFFERENTIAL [id number] 05:36:00* Test Item Value Reference Range Comments STAIN ACCEPTABILITY (test code=STN ACCEPTABLE) CABOT RINGS (test code=CAB) MORPHOLOGY COMMENT (test code=MOC) PLATELET ESTIMATE (test code=PLTEST) PLATELET MORPHOLOGY (test code=PLTMORPH) CBC W/AUTO [id number] 05:36:00* Test Item Value Reference Range Comments WHITE BLOOD CELL (test code=WBC) 12.3 K/mm3 4.5-12.5 RED BLOOD CELL (test code=RBC) 4.74 mill/mm3 3.7-5.2 HEMOGLOBIN (test code=HGB) 11.1 gram/dL 11.5-15.5 HEMATOCRIT (test code=HCT) 38.7 % 36.0-46.0 MEAN CELL VOLUME (test code=MCV) 81.6 fL 80-98 MEAN CELL HGB (test code=MCH) 23.4 picogram 27.0-33.0 MEAN CELL HGB CONCETRATION (test code=MCHC) 28.7 gram/dL 33.0-36.0 RED CELL DISTRIBUTION WIDTH (test code=RDW) 16.3 % 11.6-16.2 RED CELL DISTRIBUTION WIDTH SD (test code=RDW-SD) 48.1 fL 37.0-51.0 PLATELET COUNT (test code=PLT) 584 K/mm3 150-450 RESULT VERIFIED BY REPEAT ANALYSIS MEAN PLATELET VOLUME (test code=MPV) 10.7 fL 6.7-11.0 NEUTROPHIL % (test code=NT%) 61.6 % 39.0-69.0 IMMATURE GRANULOCYTE % (test code=IG%) 0.8 % 0.0-5.0 LYMPHOCYTE % (test code=LY%) 22.3 % 25.0-55.0 MONOCYTE % (test code=MO%) 9.2 % 0.0-10.0 EOSINOPHIL % (test code=EO%) 5.7 % 0.0-5.0 BASOPHIL % (test code=BA%) 0.4 % 0.0-1.0 NUCLEATED RBC % (test code=NRBC%) 0.0 % 0-0 NEUTROPHIL # (test code=NT#) 7.54 K/mm3 1.8-7.7 IMMATURE GRANULOCYTE # (test code=IG#) 0.10 x10 3/uL 0-0.03 LYMPHOCYTE # (test code=LY#) 2.73 K/mm3 1.0-5.0 MONOCYTE # (test code=MO#) 1.13 K/mm3 0-0.8 EOSINOPHIL # (test code=EO#) 0.70 K/mm3 0.0-0.5 BASOPHIL # (test code=BA#) 0.05 K/mm3 0.0-0.2 NUCLEATED RBC # (test code=NRBC#) 0.00 K/mm3 0.0-0.1 MANUAL DIFF REQUIRED (test code=MDIFF) NO, ONLY SCAN NEEDED DIFFERENTIAL [id number] 05:36:00* Test Item Value Reference Range Comments STAIN ACCEPTABILITY (test code=STN ACCEPTABLE) MORPHOLOGY COMMENT (test code=MOC) PLATELET ESTIMATE (test code=PLTEST) PLATELET MORPHOLOGY (test code=PLTMORPH) CBC W/AUTO [id number] 05:36:00* Test Item Value Reference Range Comments WHITE BLOOD CELL (test code=WBC) 12.3 K/mm3 4.5-12.5 RED BLOOD CELL (test code=RBC) 4.74 mill/mm3 3.7-5.2 HEMOGLOBIN (test code=HGB) 11.1 gram/dL 11.5-15.5 HEMATOCRIT (test code=HCT) 38.7 % 36.0-46.0 MEAN CELL VOLUME (test code=MCV) 81.6 fL 80-98 MEAN CELL HGB (test code=MCH) 23.4 picogram 27.0-33.0 MEAN CELL HGB CONCETRATION (test code=MCHC) 28.7 gram/dL 33.0-36.0 RED CELL DISTRIBUTION WIDTH (test code=RDW) 16.3 % 11.6-16.2 RED CELL DISTRIBUTION WIDTH SD (test code=RDW-SD) 48.1 fL 37.0-51.0 PLATELET COUNT (test code=PLT) 584 K/mm3 150-450 RESULT VERIFIED BY REPEAT ANALYSIS MEAN PLATELET VOLUME (test code=MPV) 10.7 fL 6.7-11.0 NEUTROPHIL % (test code=NT%) 61.6 % 39.0-69.0 IMMATURE GRANULOCYTE % (test code=IG%) 0.8 % 0.0-5.0 LYMPHOCYTE % (test code=LY%) 22.3 % 25.0-55.0 MONOCYTE % (test code=MO%) 9.2 % 0.0-10.0 EOSINOPHIL % (test code=EO%) 5.7 % 0.0-5.0 BASOPHIL % (test code=BA%) 0.4 % 0.0-1.0 NUCLEATED RBC % (test code=NRBC%) 0.0 % 0-0 NEUTROPHIL # (test code=NT#) 7.54 K/mm3 1.8-7.7 IMMATURE GRANULOCYTE # (test code=IG#) 0.10 x10 3/uL 0-0.03 LYMPHOCYTE # (test code=LY#) 2.73 K/mm3 1.0-5.0 MONOCYTE # (test code=MO#) 1.13 K/mm3 0-0.8 EOSINOPHIL # (test code=EO#) 0.70 K/mm3 0.0-0.5 BASOPHIL # (test code=BA#) 0.05 K/mm3 0.0-0.2 NUCLEATED RBC # (test code=NRBC#) 0.00 K/mm3 0.0-0.1 MANUAL DIFF REQUIRED (test code=MDIFF) NO, ONLY SCAN NEEDED DIFFERENTIAL [id number] 05:36:00* Test Item Value Reference Range Comments STAIN ACCEPTABILITY (test code=STN ACCEPTABLE) CABOT RINGS (test code=CAB) MORPHOLOGY COMMENT (test code=MOC) PLATELET ESTIMATE (test code=PLTEST) PLATELET MORPHOLOGY (test code=PLTMORPH) BASIC METABOLIC [id number] 05:34:00* Test Item Value Reference Range Comments SODIUM (test code=NA) 135 mmol/L 136-145 POTASSIUM (test code=K) 3.9 mmol/L 3.5-5.1 CHLORIDE (test code=CL) 101.0 mmol/L 98-107 CARBON DIOXIDE (test code=CO2) mmol/L 21-32 ANION GAP (test code=GAP) 10-20 GLUCOSE (test code=GLU) mg/dL 74-106 BLOOD UREA NITROGEN (test code=BUN) mg/dL 7-18 GLOMERULAR FILTRATION RATE (test code=GFR) mL/min >=60 CREATININE (test code=CREAT) mg/dL 0.55-1.02 BUN/CREATININE RATIO (test code=BUN/CREA) 10-20 CALCIUM (test code=CA) mg/dL 8.5-10.1 LIPID PROFILE (CORONARY RISK)[id number] 05:34:00* Test Item Value Reference Range Comments TRIGLYCERIDES (test code=TRIG) mg/dL 20-150 CHOLESTEROL (test code=CHOL) mg/dL 0-200 CHOLESTEROL/HDL RATIO (test code=CHOLHDL) RATIO 0-4.9 HDL CHOLESTEROL (test code=HDL) mg/dL 40-60 LIPOPROTEIN LDL (test code=LDL) mg/dL 100-129 [id number] 05:29:00* Test Item Value Reference Range Comments GLYCOSYLATED HEMOGLOBIN (HA1C) (test code=GLYHGB) 8.4 % HbA1 4.8-6.0 ESTIMATED AVERAGE GLUCOSE (test code=EAG) 194 MG/DL [id number] 22:40:00* Test Item Value Reference Range Comments GLUBED (test code=GLUBED) 134 mg/dL 74-106 Performed by certified sludge filtration operator at [facility] [id number] 19:16:00* Test Item Value Reference Range Comments GLUBED (test code=GLUBED) 80 mg/dL 74-106 Performed by certified sludge filtration operator at [facility] URINALYSIS [id number] 16:47:00* Test Item Value Reference Range Comments UA COLOR (test code=COLU) STRAW YELLOW UA APPEARANCE (test code=APPU) CLEAR CLEAR UA GLUCOSE DIPSTICK (test code=DGLUU) NEGATIVE mg/dL NEGATIVE UA BILIRUBIN DIPSTICK (test code=BILU) NEGATIVE mg/dL NEGATIVE UA KETONE DIPSTICK (test code=KETU) NEGATIVE mg/dL NEGATIVE UA SPECIFIC GRAVITY (test code=SGU) 1.008 1.001-1.035 UA BLOOD DIPSTICK (test code=LUIS) Negative mg/dL NEGATIVE UA PH DIPSTICK (test code=MARQUIS) 7.0 5.0-8.0 UA PROTEIN DIPSTICK (test code=PROU) NEGATIVE mg/dL NEGATIVE UA UROBILINIOGEN DIPSTICK (test code=URO) NEGATIVE mg/dL NEGATIVE UA NITRITE DIPSTICK (test code=TERESA) NEGATIVE NEGATIVE UA LEUKOCYTE ESTERASE W REFLEX (test code=LEUUR) NEGATIVE Brooke/uL NEGATIVE UA WBC (test code=WBCU) 0-5 per HPF 0-5 UA RBC (test code=RBCU) 0-2 #/HPF 0-5 UA EPITHELIAL CELLS (test code=EPIU) FEW per HPF FEW UA BACTERIA (test code=BACU) FEW #/HPF NONE UA MUCUS (test code=MUCU) FEW #/LPF FEW Urine Source? Clean CatchUR HCG [id number] 16:47:00* Test Item Value Reference Range Comments UR HCG QUAL (test code=HCGQLU) Urine Source? Clean CatchURINALYSIS [id number] 16:47:00* Test Item Value Reference Range Comments UA COLOR (test code=COLU) STRAW YELLOW UA APPEARANCE (test code=APPU) CLEAR CLEAR UA GLUCOSE DIPSTICK (test code=DGLUU) NEGATIVE mg/dL NEGATIVE UA BILIRUBIN DIPSTICK (test code=BILU) NEGATIVE mg/dL NEGATIVE UA KETONE DIPSTICK (test code=KETU) NEGATIVE mg/dL NEGATIVE UA SPECIFIC GRAVITY (test code=SGU) 1.008 1.001-1.035 UA BLOOD DIPSTICK (test code=LUIS) Negative mg/dL NEGATIVE UA PH DIPSTICK (test code=MARQUIS) 7.0 5.0-8.0 UA PROTEIN DIPSTICK (test code=PROU) NEGATIVE mg/dL NEGATIVE UA UROBILINIOGEN DIPSTICK (test code=URO) NEGATIVE mg/dL NEGATIVE UA NITRITE DIPSTICK (test code=TERESA) NEGATIVE NEGATIVE UA LEUKOCYTE ESTERASE W REFLEX (test code=LEUUR) NEGATIVE Brooke/uL NEGATIVE UA WBC (test code=WBCU) 0-5 per HPF 0-5 UA RBC (test code=RBCU) 0-2 #/HPF 0-5 UA EPITHELIAL CELLS (test code=EPIU) FEW per HPF FEW UA BACTERIA (test code=BACU) FEW #/HPF NONE UA MUCUS (test code=MUCU) FEW #/LPF FEW Urine Source? Clean CatchUR HCG [id number] 16:47:00* Test Item Value Reference Range Comments UR HCG QUAL (test code=HCGQLU) NEGATIVE This HCGQL test is NOT applicable for MALE patients.Check with nurse about probable order error.If Tumor Marker Test needed, nurse should order test "HCGTU"(Test #550.40820) Urine Source? Clean CatchURINALYSIS [id number] 16:38:00* Test Item Value Reference Range Comments UA COLOR (test code=COLU) STRAW YELLOW UA APPEARANCE (test code=APPU) CLEAR CLEAR UA GLUCOSE DIPSTICK (test code=DGLUU) NEGATIVE mg/dL NEGATIVE UA BILIRUBIN DIPSTICK (test code=BILU) NEGATIVE mg/dL NEGATIVE UA KETONE DIPSTICK (test code=KETU) NEGATIVE mg/dL NEGATIVE UA SPECIFIC GRAVITY (test code=SGU) 1.008 1.001-1.035 UA BLOOD DIPSTICK (test code=LUIS) Negative mg/dL NEGATIVE UA PH DIPSTICK (test code=MARQUIS) 7.0 5.0-8.0 UA PROTEIN DIPSTICK (test code=PROU) NEGATIVE mg/dL NEGATIVE UA UROBILINIOGEN DIPSTICK (test code=URO) NEGATIVE mg/dL NEGATIVE UA NITRITE DIPSTICK (test code=TERESA) NEGATIVE NEGATIVE UA LEUKOCYTE ESTERASE W REFLEX (test code=LEUUR) NEGATIVE Brooke/uL NEGATIVE UA WBC (test code=WBCU) per HPF 0-5 Urine Source? Clean CatchUR HCG [id number] 16:38:00* Test Item Value Reference Range Comments UR HCG QUAL (test code=HCGQLU) Urine Source? Clean Catch- XR CHEST 1 [id number] 14:20:00 FAX: Kelly Rainey DO [place]: B St: [facility] FAX: Rashel Pike MD [phone] Name: CALLIE KUMARI [facility] : 1970 Age/S: 48/F [address] [facility] Unit #: [id number] Loc: [place] [address] Phys: Kelly Rainey DO Acct: [id number] Dis Date: Status: REG ER PHONE #: [phone] Exam Date: 07/18/2018 1416 FAX #: [phone] Reason: STROKE EXAMS: CPT CODE: [id number] XR CHEST 1 V 85665 REASON FOR EXAM: STROKE Exam Order Date: 1:36 PM Ordering MSebastian: Kelly Rainey, DO PROCEDURE: - XR CHEST 1 V COMPARISON: October 03, 2009 FINDINGS: The lungs are clear. There is no pleural effusion or pneumot horax. Pulmonary vascularity is within normal limits. Cardio mediastinal silhouette is normal in size for technique. The mediastinal co ntours are within normal limits. Bones show degenerative changes. The visualized upper abdomen is within normal limits. IMPRESSION: No acute cardiopulmonary process. E lectronically Signed by Gina Miguel M.D. on at 1420 Reported and signed by: Pedro Miguel M.D. CC: Kelly Rainey DO; Rashel Paige MD Technologist: MOLLY ALEGRIA RT(R) Trnscrd Date/Time/By: 07/18/2018 (3096) : By: [email or web address] Orig Print D/ T: S: 07/18/2018 (9962) PAGE 1 Si gned Report - CT HEAD/BRAIN W/O [id number] 14:07:00 Name: CALLIE KUMARI [facility] : 1970 Age/S: 48 / F [address] [facility] Unit #: [id number] Loc: [place] [address] Phys: Kelly Rainey DO Acct: [id number] Dis Date: Status: REG ER PHONE #: [phone] Exam Date: 07/18/2018 1350 FAX #: [phone] Reason: TINGLING EXAMS: CPT CODE: [id number] CT HEAD/BRAIN W/O CONT 40171 HISTORY: TINGLING TECHNIQUE: Noncontrast 2.[address] of the head. Examination acquired within 24 hours of arrival. Automated exposure control for dose reduction. COMPARISON: None FINDINGS: No acute hemorrhage. No intracranial mass, mass effect, or midline shift. No CT evidence of acute infarct. Richards-white matter differentiation is preserved. No hydrocephalus. No extra-axial fluid collection. Mucosal thickening involving bilateral maxillary sinuses.. Mastoid air cells and middle ear cavities are clear. Orbital contents are unremarkable. Calvarium and skull base are intact. IMPRESSION: No acute intracranial abnormality. at 1407 Reported and signed by: Gina Miguel M.D. CC: Kelly Rainey DO; Rashel Paige MD Technologist:Brian Cardenas RT(R),(MR),(CT); CTDI: DLP: Trnscb Date/Time: 07/18/2018 (1407) [email or web address] Orig Print D/T: S: 07/18/2018 (2080) CTDI: DLP: PAGE 1 Signed Report CBC W/AUTO DIFF 2018-07-18 14:01:00* Test Item Value Reference Range Comments WHITE BLOOD CELL (test code=WBC) 11.0 K/mm3 4.5-12.5 RED BLOOD CELL (test code=RBC) 5.04 mill/mm3 3.7-5.2 HEMOGLOBIN (test code=HGB) 11.8 gram/dL 11.5-15.5 HEMATOCRIT (test code=HCT) 41.1 % 36.0-46.0 MEAN CELL VOLUME (test code=MCV) 81.5 fL 80-98 MEAN CELL HGB (test code=MCH) 23.4 picogram 27.0-33.0 MEAN CELL HGB CONCETRATION (test code=MCHC) 28.7 gram/dL 33.0-36.0 RED CELL DISTRIBUTION WIDTH (test code=RDW) 16.5 % 11.6-16.2 RED CELL DISTRIBUTION WIDTH SD (test code=RDW-SD) 48.4 fL 37.0-51.0 PLATELET COUNT (test code=PLT) 634 K/mm3 150-450 MEAN PLATELET VOLUME (test code=MPV) 10.5 fL 6.7-11.0 NEUTROPHIL % (test code=NT%) 68.6 % 39.0-69.0 IMMATURE GRANULOCYTE % (test code=IG%) 1.0 % 0.0-5.0 LYMPHOCYTE % (test code=LY%) 16.9 % 25.0-55.0 MONOCYTE % (test code=MO%) 8.5 % 0.0-10.0 EOSINOPHIL % (test code=EO%) 4.6 % 0.0-5.0 BASOPHIL % (test code=BA%) 0.4 % 0.0-1.0 NUCLEATED RBC % (test code=NRBC%) 0.0 % 0-0 NEUTROPHIL # (test code=NT#) 7.56 K/mm3 1.8-7.7 IMMATURE GRANULOCYTE # (test code=IG#) 0.11 x10 3/uL 0-0.03 LYMPHOCYTE # (test code=LY#) 1.86 K/mm3 1.0-5.0 MONOCYTE # (test code=MO#) 0.94 K/mm3 0-0.8 EOSINOPHIL # (test code=EO#) 0.51 K/mm3 0.0-0.5 BASOPHIL # (test code=BA#) 0.04 K/mm3 0.0-0.2 NUCLEATED RBC # (test code=NRBC#) 0.00 K/mm3 0.0-0.1 MANUAL DIFF REQUIRED (test code=MDIFF) NO, ONLY SCAN NEEDED DIFFERENTIAL [id number] 14:01:00* Test Item Value Reference Range Comments STAIN ACCEPTABILITY (test code=STN ACCEPTABLE) STAIN ACCEPTABLE POLYCHROMASIA (test code=POLC) 1+ ANISOCYTOSIS (test code=ANISO) 1+ MACROCYTOSIS (test code=MACR) 1+ PLATELET ESTIMATE (test code=PLTEST) INCREASED PLATELET MORPHOLOGY (test code=PLTMORPH) NORMAL [id number] 13:55:00* Test Item Value Reference Range Comments TROPONIN-I (test code=TROPI) 0.031 ng/mL 0-0.045 COMPREHENSIVE METABOLIC [id number] 13:28:00* Test Item Value Reference Range Comments SODIUM (test code=NA) 133 mmol/L 136-145 POTASSIUM (test code=K) 4.1 mmol/L 3.5-5.1 CHLORIDE (test code=CL) 100.0 mmol/L 98-107 CARBON DIOXIDE (test code=CO2) 27.0 mmol/L 21-32 ANION GAP (test code=GAP) 10.1 10-20 GLUCOSE (test code=GLU) 200 mg/dL 74-106 BLOOD UREA NITROGEN (test code=BUN) 5 mg/dL 7-18 GLOMERULAR FILTRATION RATE (test code=GFR) > 60 mL/min >=60 Estimated GFR by using Modified MDRD formula.Chronic kidney disease is defined as either kidney damageor GFR <60 mL/min/1.73 m2 for >3 months. CREATININE (test code=CREAT) 0.50 mg/dL 0.55-1.02 Note change in reference range due to change in reagent. BUN/CREATININE RATIO (test code=BUN/CREA) 10.0 10-20 TOTAL PROTEIN (test code=PROT) 8.0 gram/dL 6.4-8.2 ALBUMIN (test code=ALB) 3.6 g/dL 3.4-5.0 GLOBULIN (test code=GLOB) 4.4 gram/dL 2.7-4.2 ALBUMIN/GLOBULIN RATIO (test code=A/G) 0.8 0.75-1.50 CALCIUM (test code=CA) 8.9 mg/dL 8.5-10.1 BILIRUBIN TOTAL (test code=BILT) 0.20 mg/dL 0.0-1.0 SGOT/AST (test code=AST) 48 IUnit/L 15-37 SGPT/ALT (test code=ALT) 63 IUnit/L 12-78 ALKALINE PHOSPHATASE TOTAL (test code=ALKP) 132 IUnit/L 45-117 Note change in reference range due to change in reagent. [id number] 13:28:00* Test Item Value Reference Range Comments LIPASE (test code=LIP) 72 U/L 73.0-393.0 COMPREHENSIVE METABOLIC [id number] 13:21:00* Test Item Value Reference Range Comments SODIUM (test code=NA) 133 mmol/L 136-145 POTASSIUM (test code=K) 4.1 mmol/L 3.5-5.1 CHLORIDE (test code=CL) 100.0 mmol/L 98-107 CARBON DIOXIDE (test code=CO2) mmol/L 21-32 ANION GAP (test code=GAP) 10-20 GLUCOSE (test code=GLU) mg/dL 74-106 BLOOD UREA NITROGEN (test code=BUN) mg/dL 7-18 GLOMERULAR FILTRATION RATE (test code=GFR) mL/min >=60 CREATININE (test code=CREAT) mg/dL 0.55-1.02 BUN/CREATININE RATIO (test code=BUN/CREA) 10-20 TOTAL PROTEIN (test code=PROT) gram/dL 6.4-8.2 ALBUMIN (test code=ALB) g/dL 3.4-5.0 GLOBULIN (test code=GLOB) gram/dL 2.7-4.2 ALBUMIN/GLOBULIN RATIO (test code=A/G) 0.75-1.50 CALCIUM (test code=CA) mg/dL 8.5-10.1 BILIRUBIN TOTAL (test code=BILT) mg/dL 0.0-1.0 SGOT/AST (test code=AST) IUnit/L 15-37 SGPT/ALT (test code=ALT) IUnit/L 12-78 ALKALINE PHOSPHATASE TOTAL (test code=ALKP) IUnit/L 45-117 [id number] 13:21:00* Test Item Value Reference Range Comments LIPASE (test code=LIP) U/L 73.0-393.0 CBC W/AUTO [id number] 13:18:00* Test Item Value Reference Range Comments WHITE BLOOD CELL (test code=WBC) 11.0 K/mm3 4.5-12.5 RED BLOOD CELL (test code=RBC) 5.04 mill/mm3 3.7-5.2 HEMOGLOBIN (test code=HGB) 11.8 gram/dL 11.5-15.5 HEMATOCRIT (test code=HCT) 41.1 % 36.0-46.0 MEAN CELL VOLUME (test code=MCV) 81.5 fL 80-98 MEAN CELL HGB (test code=MCH) 23.4 picogram 27.0-33.0 MEAN CELL HGB CONCETRATION (test code=MCHC) 28.7 gram/dL 33.0-36.0 RED CELL DISTRIBUTION WIDTH (test code=RDW) 16.5 % 11.6-16.2 RED CELL DISTRIBUTION WIDTH SD (test code=RDW-SD) 48.4 fL 37.0-51.0 PLATELET COUNT (test code=PLT) 634 K/mm3 150-450 MEAN PLATELET VOLUME (test code=MPV) 10.5 fL 6.7-11.0 NEUTROPHIL % (test code=NT%) 68.6 % 39.0-69.0 IMMATURE GRANULOCYTE % (test code=IG%) 1.0 % 0.0-5.0 LYMPHOCYTE % (test code=LY%) 16.9 % 25.0-55.0 MONOCYTE % (test code=MO%) 8.5 % 0.0-10.0 EOSINOPHIL % (test code=EO%) 4.6 % 0.0-5.0 BASOPHIL % (test code=BA%) 0.4 % 0.0-1.0 NUCLEATED RBC % (test code=NRBC%) 0.0 % 0-0 NEUTROPHIL # (test code=NT#) 7.56 K/mm3 1.8-7.7 IMMATURE GRANULOCYTE # (test code=IG#) 0.11 x10 3/uL 0-0.03 LYMPHOCYTE # (test code=LY#) 1.86 K/mm3 1.0-5.0 MONOCYTE # (test code=MO#) 0.94 K/mm3 0-0.8 EOSINOPHIL # (test code=EO#) 0.51 K/mm3 0.0-0.5 BASOPHIL # (test code=BA#) 0.04 K/mm3 0.0-0.2 NUCLEATED RBC # (test code=NRBC#) 0.00 K/mm3 0.0-0.1 MANUAL DIFF REQUIRED (test code=MDIFF) NO, ONLY SCAN NEEDED DIFFERENTIAL [id number] 13:18:00* Test Item Value Reference Range Comments STAIN ACCEPTABILITY (test code=STN ACCEPTABLE) MORPHOLOGY COMMENT (test code=MOC) PLATELET ESTIMATE (test code=PLTEST) PLATELET MORPHOLOGY (test code=PLTMORPH) CBC W/AUTO [id number] 13:17:00* Test Item Value Reference Range Comments WHITE BLOOD CELL (test code=WBC) 11.0 K/mm3 4.5-12.5 RED BLOOD CELL (test code=RBC) 5.04 mill/mm3 3.7-5.2 HEMOGLOBIN (test code=HGB) 11.8 gram/dL 11.5-15.5 HEMATOCRIT (test code=HCT) 41.1 % 36.0-46.0 MEAN CELL VOLUME (test code=MCV) 81.5 fL 80-98 MEAN CELL HGB (test code=MCH) 23.4 picogram 27.0-33.0 MEAN CELL HGB CONCETRATION (test code=MCHC) 28.7 gram/dL 33.0-36.0 RED CELL DISTRIBUTION WIDTH (test code=RDW) 16.5 % 11.6-16.2 RED CELL DISTRIBUTION WIDTH SD (test code=RDW-SD) 48.4 fL 37.0-51.0 PLATELET COUNT (test code=PLT) 634 K/mm3 150-450 MEAN PLATELET VOLUME (test code=MPV) 10.5 fL 6.7-11.0 NEUTROPHIL % (test code=NT%) 68.6 % 39.0-69.0 IMMATURE GRANULOCYTE % (test code=IG%) 1.0 % 0.0-5.0 LYMPHOCYTE % (test code=LY%) 16.9 % 25.0-55.0 MONOCYTE % (test code=MO%) 8.5 % 0.0-10.0 EOSINOPHIL % (test code=EO%) 4.6 % 0.0-5.0 BASOPHIL % (test code=BA%) 0.4 % 0.0-1.0 NUCLEATED RBC % (test code=NRBC%) 0.0 % 0-0 NEUTROPHIL # (test code=NT#) 7.56 K/mm3 1.8-7.7 IMMATURE GRANULOCYTE # (test code=IG#) 0.11 x10 3/uL 0-0.03 LYMPHOCYTE # (test code=LY#) 1.86 K/mm3 1.0-5.0 MONOCYTE # (test code=MO#) 0.94 K/mm3 0-0.8 EOSINOPHIL # (test code=EO#) 0.51 K/mm3 0.0-0.5 BASOPHIL # (test code=BA#) 0.04 K/mm3 0.0-0.2 NUCLEATED RBC # (test code=NRBC#) 0.00 K/mm3 0.0-0.1 MANUAL DIFF REQUIRED (test code=MDIFF) NO, ONLY SCAN NEEDED DIFFERENTIAL [id number] 13:17:00* Test Item Value Reference Range Comments STAIN ACCEPTABILITY (test code=STN ACCEPTABLE) CABOT RINGS (test code=CAB) MORPHOLOGY COMMENT (test code=MOC) PLATELET ESTIMATE (test code=PLTEST) PLATELET MORPHOLOGY (test code=PLTMORPH) CBC W/AUTO [id number] 13:17:00* Test Item Value Reference Range Comments WHITE BLOOD CELL (test code=WBC) 11.0 K/mm3 4.5-12.5 RED BLOOD CELL (test code=RBC) 5.04 mill/mm3 3.7-5.2 HEMOGLOBIN (test code=HGB) 11.8 gram/dL 11.5-15.5 HEMATOCRIT (test code=HCT) 41.1 % 36.0-46.0 MEAN CELL VOLUME (test code=MCV) 81.5 fL 80-98 MEAN CELL HGB (test code=MCH) 23.4 picogram 27.0-33.0 MEAN CELL HGB CONCETRATION (test code=MCHC) 28.7 gram/dL 33.0-36.0 RED CELL DISTRIBUTION WIDTH (test code=RDW) 16.5 % 11.6-16.2 RED CELL DISTRIBUTION WIDTH SD (test code=RDW-SD) 48.4 fL 37.0-51.0 PLATELET COUNT (test code=PLT) 634 K/mm3 150-450 MEAN PLATELET VOLUME (test code=MPV) 10.5 fL 6.7-11.0 NEUTROPHIL % (test code=NT%) 68.6 % 39.0-69.0 IMMATURE GRANULOCYTE % (test code=IG%) 1.0 % 0.0-5.0 LYMPHOCYTE % (test code=LY%) 16.9 % 25.0-55.0 MONOCYTE % (test code=MO%) 8.5 % 0.0-10.0 EOSINOPHIL % (test code=EO%) 4.6 % 0.0-5.0 BASOPHIL % (test code=BA%) 0.4 % 0.0-1.0 NUCLEATED RBC % (test code=NRBC%) 0.0 % 0-0 NEUTROPHIL # (test code=NT#) 7.56 K/mm3 1.8-7.7 IMMATURE GRANULOCYTE # (test code=IG#) 0.11 x10 3/uL 0-0.03 LYMPHOCYTE # (test code=LY#) 1.86 K/mm3 1.0-5.0 MONOCYTE # (test code=MO#) 0.94 K/mm3 0-0.8 EOSINOPHIL # (test code=EO#) 0.51 K/mm3 0.0-0.5 BASOPHIL # (test code=BA#) 0.04 K/mm3 0.0-0.2 NUCLEATED RBC # (test code=NRBC#) 0.00 K/mm3 0.0-0.1 MANUAL DIFF REQUIRED (test code=MDIFF) NO, ONLY SCAN NEEDED DIFFERENTIAL [id number] 13:17:00* Test Item Value Reference Range Comments STAIN ACCEPTABILITY (test code=STN ACCEPTABLE) MORPHOLOGY COMMENT (test code=MOC) PLATELET ESTIMATE (test code=PLTEST) PLATELET MORPHOLOGY (test code=PLTMORPH) CBC W/AUTO [id number] 13:17:00* Test Item Value Reference Range Comments WHITE BLOOD CELL (test code=WBC) 11.0 K/mm3 4.5-12.5 RED BLOOD CELL (test code=RBC) 5.04 mill/mm3 3.7-5.2 HEMOGLOBIN (test code=HGB) 11.8 gram/dL 11.5-15.5 HEMATOCRIT (test code=HCT) 41.1 % 36.0-46.0 MEAN CELL VOLUME (test code=MCV) 81.5 fL 80-98 MEAN CELL HGB (test code=MCH) 23.4 picogram 27.0-33.0 MEAN CELL HGB CONCETRATION (test code=MCHC) 28.7 gram/dL 33.0-36.0 RED CELL DISTRIBUTION WIDTH (test code=RDW) 16.5 % 11.6-16.2 RED CELL DISTRIBUTION WIDTH SD (test code=RDW-SD) 48.4 fL 37.0-51.0 PLATELET COUNT (test code=PLT) 634 K/mm3 150-450 MEAN PLATELET VOLUME (test code=MPV) 10.5 fL 6.7-11.0 NEUTROPHIL % (test code=NT%) 68.6 % 39.0-69.0 IMMATURE GRANULOCYTE % (test code=IG%) 1.0 % 0.0-5.0 LYMPHOCYTE % (test code=LY%) 16.9 % 25.0-55.0 MONOCYTE % (test code=MO%) 8.5 % 0.0-10.0 EOSINOPHIL % (test code=EO%) 4.6 % 0.0-5.0 BASOPHIL % (test code=BA%) 0.4 % 0.0-1.0 NUCLEATED RBC % (test code=NRBC%) 0.0 % 0-0 NEUTROPHIL # (test code=NT#) 7.56 K/mm3 1.8-7.7 IMMATURE GRANULOCYTE # (test code=IG#) 0.11 x10 3/uL 0-0.03 LYMPHOCYTE # (test code=LY#) 1.86 K/mm3 1.0-5.0 MONOCYTE # (test code=MO#) 0.94 K/mm3 0-0.8 EOSINOPHIL # (test code=EO#) 0.51 K/mm3 0.0-0.5 BASOPHIL # (test code=BA#) 0.04 K/mm3 0.0-0.2 NUCLEATED RBC # (test code=NRBC#) 0.00 K/mm3 0.0-0.1 MANUAL DIFF REQUIRED (test code=MDIFF) NO, ONLY SCAN NEEDED DIFFERENTIAL [id number] 13:17:00* Test Item Value Reference Range Comments STAIN ACCEPTABILITY (test code=STN ACCEPTABLE) CABOT RINGS (test code=CAB) MORPHOLOGY COMMENT (test code=MOC) PLATELET ESTIMATE (test code=PLTEST) PLATELET MORPHOLOGY (test code=PLTMORPH) CBC W/AUTO [id number] 13:13:00* Test Item Value Reference Range Comments WHITE BLOOD CELL (test code=WBC) K/mm3 4.5-12.5 RED BLOOD CELL (test code=RBC) mill/mm3 3.7-5.2 HEMOGLOBIN (test code=HGB) 11.8 gram/dL 11.5-15.5 HEMATOCRIT (test code=HCT) 41.1 % 36.0-46.0 MEAN CELL VOLUME (test code=MCV) fL 80-98 MEAN CELL HGB (test code=MCH) picogram 27.0-33.0 MEAN CELL HGB CONCETRATION (test code=MCHC) gram/dL 33.0-36.0 RED CELL DISTRIBUTION WIDTH (test code=RDW) % 11.6-16.2 RED CELL DISTRIBUTION WIDTH SD (test code=RDW-SD) fL 37.0-51.0 PLATELET COUNT (test code=PLT) K/mm3 150-450 MEAN PLATELET VOLUME (test code=MPV) fL 6.7-11.0 NEUTROPHIL % (test code=NT%) % 39.0-69.0 IMMATURE GRANULOCYTE % (test code=IG%) % 0.0-5.0 LYMPHOCYTE % (test code=LY%) % 25.0-55.0 MONOCYTE % (test code=MO%) % 0.0-10.0 EOSINOPHIL % (test code=EO%) % 0.0-5.0 BASOPHIL % (test code=BA%) % 0.0-1.0 NEUTROPHIL # (test code=NT#) K/mm3 1.8-7.7 LYMPHOCYTE # (test code=LY#) K/mm3 1.0-5.0 MONOCYTE # (test code=MO#) K/mm3 0-0.8 EOSINOPHIL # (test code=EO#) K/mm3 0.0-0.5 BASOPHIL # (test code=BA#) K/mm3 0.0-0.2
[2018-10-09 11:50] VITALS: BP 109/86
== END | disposition home or self-care (01) ==
LOC: OR 06:43
PROVIDERS: ATTEND Internal Medicine Gastroenterology
DX: D50.9 Iron deficiency anemia, unspecified (principal); K29.50 Unspecified chronic gastritis without bleeding; K59.00 Constipation, unspecified; K64.8 Other hemorrhoids; Z71.3 Dietary counseling and surveillance; E66.3 Overweight; I10 Essential (primary) hypertension; I69.398 Other sequelae of cerebral infarction; R20.0 Anesthesia of skin; G83.9 Paralytic syndrome, unspecified; G47.33 Obstructive sleep apnea (adult) (pediatric); E11.9 Type 2 diabetes mellitus without complications; N20.0 Calculus of kidney; F41.9 Anxiety disorder, unspecified; Z01.810 Encounter for preprocedural cardiovascular examination; Z79.82 Long term (current) use of aspirin; Z79.84 Long term (current) use of oral hypoglycemic drugs; Z68.28 Body mass index [BMI] 28.0-28.9, adult; Z80.0 Family history of malignant neoplasm of digestive organs
CPT/HCPCS: 43239; 45378; 81025; 93005; J2250; J2704; J3010

== ENCOUNTER 2020-04-24 14:32 | Emergency (ER) | payer BC ==
[~2020-04-24] VITALS: Ht 157.5 cm; Wt 64.0 kg
[~2020-04-24 14:32] MED LIST changes: -FENTANYL CITRATE/PF 100MCG/2 ML INJ ONE; -MIDAZOLAM HCL 2 MG/2 ML VIAL ONE; -PROPOFOL IV EMULSION 10 MG/ML 20 ML VIAL ONE
[2020-04-24] MEDS ORDERED: ACETAMIN/BUTALBITAL/CAFFEINE TAB PO ONE (15:45)
[2020-04-24] MEDS ORDERED: DIPHENHYDRAMINE HCL INJ 50 MG/ML VIAL IV ONE (15:45)
[2020-04-24] MEDS ORDERED: METOCLOPRAMIDE HCL 10 MG/2ML VIAL IV ONE (15:45)
[2020-04-24 16:00] LABS: BASOPHILS % 0.2 % (0.0-1.0); EOSINOPHILS # (AUTO) 0.1 (0.0-0.4); EOSINOPHILS % 0.7 % (0.0-6.0); HEMATOCRIT 44.6 % (34.2-44.1); HEMOGLOBIN 14.2 g/dL (12.0-16.0); LYMPHOCYTES # (AUTO) 1.1 (1.0-3.2); LYMPHOCYTES % 8.7 % (18.0-39.1); MEAN CORPUSCULAR HEMOGLOBIN 27.6 pg (28-32); MEAN CORPUSCULAR HGB CONC 31.8 g/dL (31-35); MEAN CORPUSCULAR VOLUME 86.6 fL (81-99); MONOCYTES # (AUTO) 0.7 (0.2-0.8); MONOCYTES % 5.4 % (4.4-11.3); NEUTROPHILS # (AUTO) 10.7 (2.1-6.9); PLATELET COUNT 428 x10e3/uL (140-360); RED BLOOD COUNT 5.15 x10e6/uL (3.6-5.1); RED CELL DISTRIBUTION WIDTH 13.2 % (11.7-14.4)
[2020-04-24 16:14] LABS: ALANINE AMINOTRANSFERASE 58 IU/L (0-55); ALBUMIN 3.8 g/dL (3.5-5.0); ALBUMIN/GLOBULIN RATIO 1.1 (0.8-2.0); ALKALINE PHOSPHATASE 132 IU/L (40-150); ANION GAP 14.8 mmol/L (8-16); BLOOD UREA NITROGEN 16 mg/dL (7-26); BUN/CREATININE RATIO 17 (6-25); CALCIUM 8.8 mg/dL (8.4-10.2); CARBON DIOXIDE 24 mmol/L (22-29); CHLORIDE 102 mmol/L (98-107); CREATINE KINASE 44 IU/L (29-168); CREATININE, SERUM 0.94 mg/dL (0.57-1.11); EST GLOMERULAR FILTRATION RATE > 60 ML/MIN (60-); GLUCOSE 304 mg/dL (74-118); POTASSIUM 3.8 mmol/L (3.5-5.1); SODIUM 137 mmol/L (136-145)
== END 2020-04-24 18:02 | disposition home or self-care (01) ==
LOC: ER 14:56
DX: T46.7X5A Adverse effect of peripheral vasodilators, initial encounter (principal); R53.1 Weakness; I10 Essential (primary) hypertension; Z79.82 Long term (current) use of aspirin; Z79.84 Long term (current) use of oral hypoglycemic drugs; Z86.73 Personal history of transient ischemic attack (TIA), and cerebral infarction without residual deficits
CPT/HCPCS: 36415; 70450; 71045; 80053; 82550; 82553; 84484; 85025; 93005; 99284; J1200; J2765; U0002